=== PATIENT | female | born 1930 | race African-American/Black ===

== ENCOUNTER 2016-10-13 16:21 | Inpatient (IN) | payer OTHER ==
[~2016-10-13] VITALS: Ht 160 cm; Wt 86.4 kg
[~2016-10-13 16:21] MED LIST: ALPR0.5T6 PO; AMLO10TA2 PO; AMLO5TAB2 PO; ASPI81TA9 PO; ATOR20TA PO; BREO ELLIPTA 11 EACH INH; BUDE10.22 IH; BUME1TAB PO; CLOP75TA PO; EZET10TA3 PO; FURO-69 PO; LOSA50TA2 PO; LOSA50TA6 PO; METO25TA4 PO; METO50TA2 PO; METO5TAB4 PO; NITR0.4T6 SL; POTA10CA PO; POTA10TA12 PO; POTA20TA4 PO; PROAIR HFA8.5 GM INH; SIMV20TA3 PO; TICA90TA PO; TIOT18CA IH
[2016-10-13] MEDS ORDERED: IV NORMAL SALINE 1000ML BAG 1,000 ML IV SCH (18:12)
[2016-10-13] MEDS ORDERED: ONDANSETRON PF 4 MG/2 ML VIAL. IV ONE (18:15)
[2016-10-13] MEDS ORDERED: FAMOTIDINE 20 MG/2 ML VIAL IVP ONE (18:15)
--- NOTE | 2016-10-13 18:17 | PHYS DOC ---
Past Medical History Past Medical History: CHF, Diverticulitis, Hypertension, RI Past Surgical History: Cholecystectomy, Coronary Bypass Surgery, Hysterectomy, Other Additional Past Surgical Histo: Hiatal Hernia repair, cardiac cath, STENT PLACEMENT, PARTIAL COLECTOMY Alcohol Use: None Drug Use: None Adult General Chief Complaint Chief Complaint: NAUSEA/VOMITING/DIARRHA HPI HPI Patient is a 86 year old female who presents with worsening weakness and shortness of breath over the past 2 weeks. Patient states her symptoms got significantly worse over the past 2 days. The patient has history of CHF, hypertension, and myocardial infarction. Patient denies any fevers or chest pain. Patient states that she has had intermittent abdominal pain towards the upper portion of her belly, however she is not experiencing pain currently. Patient denies any increase in urinary frequency or dysuria. Patient has had significant increase in dyspnea with exertion. Patient states that she is short of breath currently while at rest. Patient also admits to worsening edema in her lower extremities. Review of Systems Review of Systems Constitutional: Generalized weakness, Denies fever or chills [] Eyes: Denies change in visual acuity, redness, or eye pain [] HENT: Denies nasal congestion or sore throat [] Respiratory: Shortness of breath, denies cough [] Cardiovascular: Lower extremity edema, denies chest pain [] GI: Denies abdominal pain, nausea, vomiting, bloody stools or diarrhea [] : Denies dysuria or hematuria [] Musculoskeletal: Denies back pain or joint pain [] Integument: Denies rash or skin lesions [] Neurologic: Denies headache, focal weakness or sensory changes [] Current Medications Current Medications Current Medications Medications (Trade) Dose Ordered Sig/Chacho Start Time Stop Time Status Last Admin Dose Admin Famotidine (Pepcid) 20 mg 1X ONCE 10/13/16 18:15 10/13/16 18:16 DC 10/13/16 19:51 20 MG Ondansetron HCl (Zofran) 4 mg 1X ONCE 10/13/16 18:15 10/13/16 18:16 DC 10/13/16 19:51 4 MG Sodium Chloride (Iv Sodium Chloride 0.9% 1000ml Bag) 1,000 ml @ 100 mls/hr Q10H 10/13/16 18:12 10/14/16 04:11 10/13/16 19:51 100 MLS/HR Allergies Allergies Allergies Coded Allergies Type Severity Reaction Last Updated Verified No Known Drug Allergies 03/08/14 No Physical Exam Physical Exam Constitutional: Alert, afebrile, appears in mild to moderate discomfort. [] HENT: Normocephalic, atraumatic, bilateral external ears normal, oropharynx moist, no oral exudates, nose normal. [] Eyes: PERRLA, EOMI, conjunctiva normal, no discharge. [] Neck: Normal range of motion, no tenderness, supple, no stridor. [] Cardiovascular: Irregular rhythm, bradycardia, no murmur [] Lungs & Thorax: Mild to moderate shortness of air movement bilaterally, rales bilaterally, no wheezes [] Abdomen: Bowel sounds normal, soft, no tenderness, no masses, no pulsatile masses. [] Skin: Warm, dry, no erythema, no rash. [] Back: No tenderness, no CVA tenderness. [] Extremities: No tenderness, no cyanosis, no clubbing, ROM intact, 2+ pitting edema in the bilateral lower extremities. [] Neurologic: Alert and oriented X 3, normal motor function, normal sensory function, no focal deficits noted. [] Current Patient Data Vital Signs Vital Signs Date Time Temp Pulse Resp B/P Pulse Ox O2 Delivery O2 Flow Rate FiO2 10/13/16 17:55 97.8 72 22 108/59 93 Nasal Cannula 4 97.8 Lab Values Laboratory Tests Test 10/13/16 19:40 White Blood Count 7.1x10^3/uL (4.0-11.0) Red Blood Count 4.32x10^6/uL (3.50-5.40) Hemoglobin 13.3g/dL (12.0-15.5) Hematocrit 40.7% (36.0-47.0) Mean Corpuscular Volume 94fL (79-100) Mean Corpuscular Hemoglobin 31pg (25-35) Mean Corpuscular Hemoglobin Concent 33g/dL (31-37) Red Cell Distribution Width 17.8% (11.5-14.5) H Platelet Count 222x10^3/uL (140-400) Neutrophils (%) (Auto) 67% (31-73) Lymphocytes (%) (Auto) 18% (24-48) L Monocytes (%) (Auto) 13% (0-9) H Eosinophils (%) (Auto) 1% (0-3) Basophils (%) (Auto) 1% (0-3) Neutrophils # (Auto) 4.8x10^3uL (1.8-7.7) Lymphocytes # (Auto) 1.3x10^3/uL (1.0-4.8) Monocytes # (Auto) 0.9x10^3/uL (0.0-1.1) Eosinophils # (Auto) 0.0x10^3/uL (0.0-0.7) Basophils # (Auto) 0.1x10^3/uL (0.0-0.2) Sodium Level 147mmol/L (136-145) H Potassium Level 3.4mmol/L (3.5-5.1) L Chloride Level 106mmol/L (98-107) Carbon Dioxide Level 29mmol/L (21-32) Anion Gap 12 (6-14) Blood Urea Nitrogen 26mg/dL (7-20) H Creatinine 2.0mg/dL (0.6-1.0) H Estimated GFR (Cockcroft-Gault) 28.7 BUN/Creatinine Ratio 13 (6-20) Glucose Level 89mg/dL (70-99) Calcium Level 9.1mg/dL (8.5-10.1) Total Bilirubin 1.6mg/dL (0.2-1.0) H Aspartate Amino Transferase (AST) 31U/L (15-37) Alanine Aminotransferase (ALT) 11U/L (14-59) L Alkaline Phosphatase 161U/L (46-116) H Creatine Kinase 345U/L (26-192) H Creatine Kinase MB (Mass) 2.0ng/mL (0.0-3.6) Creatine Kinase MB Relative Index 0.6% (0-4) Troponin I Quantitative 0.104ng/mL (0.000-0.055) YC-Gsz-G-Type Natriuretic Peptide 2782pg/mL (0-449) H Total Protein 7.1g/dL (6.4-8.2) Albumin 2.8g/dL (3.4-5.0) L Albumin/Globulin Ratio 0.7 (1.0-1.7) L Lipase 52U/L (73-393) L Laboratory Tests 10/13/16 19:40 Laboratory Tests 10/13/16 19:40 EKG EKG Interpreted by me: Heart rate 79, trigeminy, normal axis, no acute ST/T-wave abnormalities present [] Radiology/Procedures Radiology/Procedures 3 view acute abdominal series interpreted by me: Hilar pulmonary vascular congestion, trace pleural effusions bilaterally, cardiomegaly present, nonobstructive bowel gas pattern, no free air under the diaphragm [] Course & Med Decision Making Course & Med Decision Making Pertinent Labs and Imaging studies reviewed. (See chart for details) Patient receiving supplemental oxygen which is holding her oxygen saturation above 92% at this time. The patient display signs of acute on chronic congestive heart failure. The patient will need admission to the hospital for further treatment. Patient started on 60 mg of IV Lasix in the emergency department. Patient will also require gentle IV hydration as patient appears somewhat dehydrated on exam as well. Patient was admitted to Dr. Naqvi. A consult was placed to Dr. Vogt to follow patient in hospital. Dragon Disclaimer Dragon Disclaimer This electronic medical record was generated, in whole or in part, using a voice recognition dictation system. Departure Departure Impression: Primary Impression: Acute on chronic congestive heart failure Additional Impressions: Elevated troponin Chronic renal failure, stage 4 (severe) Severe protein-calorie malnutrition Disposition: ADMITTED INPATIENT Admitting Physician: Ger Naqvi Condition: GUARDED Referrals: CARTER BRAR (PCP) Problem Qualifiers Primary Impression: Acute on chronic congestive heart failure Congestive heart failure type: unspecified congestive heart failure type Qualified Code: I50.9 - Heart failure, unspecified MIAH OWENS MD Oct 13, 2016 18:17
[2016-10-13 19:59] LABS: BASO # 0.1 x10^3/uL (0.0-0.2); BASO % 1 % (0-3); EOS % 1 % (0-3); HEMATOCRIT 40.7 % (36.0-47.0); HEMOGLOBIN 13.3 g/dL (12.0-15.5); LYMPH # 1.3 x10^3/uL (1.0-4.8); LYMPH % 18 % (24-48); MEAN CORPUSCULAR HEMOGLOBIN 31 pg (25-35); MEAN CORPUSCULAR HGB CONC 33 g/dL (31-37); MEAN CORPUSCULAR VOLUME 94 fL (79-100); MONO % 13 % (0-9); NEUT % 67 % (31-73); PLATELET COUNT 222 x10^3/uL (140-400); RED BLOOD COUNT 4.32 x10^6/uL (3.50-5.40); RED CELL DISTRIBUTION WIDTH 17.8 % (11.5-14.5); WHITE BLOOD COUNT 7.1 x10^3/uL (4.0-11.0)
[2016-10-13 20:12] LABS: CALCIUM 9.1 mg/dL (8.5-10.1); GFR 28.7; POTASSIUM 3.4 mmol/L (3.5-5.1)
[2016-10-13 20:18] LABS: ALBUMIN 2.8 g/dL (3.4-5.0); ALBUMIN/GLOBULIN RATIO 0.7 (1.0-1.7); TOTAL BILIRUBIN 1.6 mg/dL (0.2-1.0); TOTAL PROTEIN 7.1 g/dL (6.4-8.2)
[2016-10-13 20:25] LABS: CKMB INDEX 0.6 % (0-4)
--- NOTE | 2016-10-13 21:47 | ACF ---
Admission Forms Criteria HEART FAILURE: COMMON COMPLICATIONS Clinical Indications for Inpatient Care (Place 'X' for any and all applicable criteria): Ongoing inpatient care may be indicated for heart failure with ANY ONE of the following (1)(2)(3)(4)(5): [ ]I. Ongoing need for care for primary condition requiring frequent therapy adjustments because of changes in cardiac function (eg, drug dosage changes for drugs that are renally metabolized) [ ]II. New-onset heart failure [ ]III. Heart failure with decreased urine output not responsive to attempts to optimize volume status [ ]IV. Acute cardiac ischemia causing or associated with failure [X]V. Complications of heart failure, including ANY ONE of the following: [ ]a) Pericardial effusion [ ]b) Symptomatic pleural effusion [ ]c) O2 saturation <90% or PO2 < 60 mm Hg (8.0 kPa) on room air or require baseline supplemental O2 [ ]d) Tachypnea [X]e) Dyspnea [ ]f) Syncope [ ]g) Change in mental status [ ]h) Acute renal insufficiency that is severe (reduction of more than 50% in estimated glomerular filtration rate from baseline) or progressive reduction of more than 25% in estimated glomerular filtration rate from baseline, with creatinine continuing to rise) [ ]i) Hemodynamic instability [ ]j) Anasarca [ ]k) Clinically significant metabolic abnormalities due to heart failure (eg, new-onset metabolic acidosis) Extended stay beyond goal length of stay for primary condition may be needed until ALL of the following are present(1)(3): [ ]a) Stable and effective diuretic regimen established (or patient on stable dialysis regimen if in chronic renal failure) [ ]b) Breathing comfortably at rest [ ]c) Saturation of arterial oxygen greater than 90% or at acceptable baseline [ ]d) Pulmonary edema absent or improved [ ]e) Hemodynamic stability [ ]f) Volume status acceptable on oral medication [ ]g) Peripheral or sacral edema absent or improved [ ]h) Renal function stable and manageable at a lower level of care [ ]i) Complications (eg, pleural effusion) resolved or manageable at a lower level of care [ ]j) Patient or caregiver has received written discharge instructions or educational material addressing activity level, diet, discharge medications, follow-up appointment, weight monitoring, and what to do if symptoms worsen The original [employer] content created by [employer] has been revised. The portions of the content which have been revised are identified through the use of italic text or in bold, and [facility] has neither reviewed nor approved the modified material.All other unmodified content is copyright [facility]. Please see references footnoted in the original [facility] edition 2016 Admission Criteria Met?: Yes JAYME HOLLAND Oct 13, 2016 21:46
[2016-10-13 23:40] VITALS: BP 105/84
[2016-10-14] VITALS (7 sets, daily range): BP systolic 78–133; BP diastolic 51–72
[2016-10-14] MEDS ORDERED: METO25TA4 PO (00:39)
[2016-10-14] MEDS ORDERED: ACET500T68 PO (00:41)
[2016-10-14] MEDS ORDERED: FURO40TA4 PO (00:42)
--- NOTE | 2016-10-14 06:11 | EKG ---
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
--- NOTE | 2016-10-14 08:14 | RAD ---
Abdomen series with chest, 3 views, 10/13/2016: History: Epigastric pain, shortness of breath There is a small amount of gas in the GI tract in a nonspecific pattern. No free air seen in the abdomen. There is no evidence of organomegaly. Scattered vascular calcifications are present. Degenerative changes are evident in the spine. The heart is enlarged. There is calcific plaquing of the aorta. There is mild unchanged elevation of the left hemidiaphragm. The pulmonary vascularity is within normal limits. There is known fibrocalcific pleural/parenchymal scarring in the left base. There is probably mild superimposed bibasilar atelectasis. The upper lung hernandez are clear. IMPRESSION: 1. No acute abdominal abnormality is detected. 2. Cardiomegaly and aortic atherosclerosis. 3. Mild bibasilar atelectasis superimposed upon scarring.
--- NOTE | 2016-10-14 10:35 | PDOC1 ---
History and Physical Past Medical History Cardiovascular: CAD, CHF, HTN, Hyperlipidemia, Other Pulmonary: Other CENTRAL NERVOUS SYSTEM: Other GI: GERD, Peptic Ulcer disease, Other Heme/Onc: No pertinent hx Hepatobiliary: No pertinent hx Psych: No pertinent hx Rheumatologic: No pertinent hx Infectious disease: No pertinent hx Renal/: No pertinent hx Endocrine: No pertinent hx Past Surgical History Past Surgical History: Cholecystectomy, Other Family History Family History: Coronary Artery Disease, Hypertension Social History ALCOHOL: none Drugs: None Current Problem List Problem List Problems Medical Problems: (1) Acute on chronic congestive heart failure Status: Acute (2) Acute on chronic diastolic CHF (congestive heart failure) Status: Acute (3) Chronic renal failure, stage 4 (severe) Status: Acute (4) Elevated troponin Status: Acute (5) Severe protein-calorie malnutrition Status: Acute Current Medications Current Medications Current Medications Medications (Trade) Dose Ordered Sig/Chacho Start Time Stop Time Status Last Admin Dose Admin Famotidine (Pepcid) 20 mg 1X ONCE 10/13/16 18:15 10/13/16 18:16 DC 10/13/16 19:51 20 MG Furosemide (Lasix) 40 mg 1X ONCE 10/14/16 10:45 10/14/16 10:46 UNV Ondansetron HCl (Zofran) 4 mg 1X ONCE 10/13/16 18:15 10/13/16 18:16 DC 10/13/16 19:51 4 MG Sodium Chloride (Iv Sodium Chloride 0.9% 1000ml Bag) 1,000 ml @ 100 mls/hr Q10H 10/13/16 18:12 10/14/16 04:11 DC 10/13/16 19:51 100 MLS/HR Allergies Allergies Allergies Coded Allergies Type Severity Reaction Last Updated Verified No Known Drug Allergies 03/08/14 No ROS Review of System CONSTITUTIONAL: No fever or chills EYES: No recent changes SKIN: No rash or itching CARDIOVASCULAR: No chest pain, syncope but sob and edema RESPIRATORY: SOB GASTROINTESTINAL: No nausea, vomiting or abdominal pain NEUROLOGICAL: No headaches or weakness ENDOCRINE: No cold or heat intolerance GENITOURINARY: No urgency or frequency of urination MUSCULOSKELETAL: No back pain or joint pain LYMPHATICS: No enlarged lymph nodes PSYCHIATRIC: No anxiety or depression Physical Exam Physical Exam GEN.: apparent distress. Alert and oriented. HEENT: Head is normocephalic, atraumatic NECK: Supple. no jvd LUNGS: b/l rales mild distress HEART: RRR, S1, S2 present. Peripheral pulses intact ABDOMEN: Soft, nontender. Positive bowel sounds. EXTREMITIES: Without any cyanosis. edema +2 NEUROLOGIC: Normal speech, normal tone PSYCHIATRIC: Normal affect, normal mood. SKIN: No visible skin changes Vitals Vitals Vital Signs Date Time Temp Pulse Resp B/P Pulse Ox O2 Delivery O2 Flow Rate FiO2 10/14/16 07:00 98.4 74 17 109/71 93 Nasal Cannula 3.5 98.4 Labs Labs Laboratory Tests Test 10/13/16 19:40 White Blood Count 7.1x10^3/uL (4.0-11.0) Red Blood Count 4.32x10^6/uL (3.50-5.40) Hemoglobin 13.3g/dL (12.0-15.5) Hematocrit 40.7% (36.0-47.0) Mean Corpuscular Volume 94fL (79-100) Mean Corpuscular Hemoglobin 31pg (25-35) Mean Corpuscular Hemoglobin Concent 33g/dL (31-37) Red Cell Distribution Width 17.8% (11.5-14.5) Platelet Count 222x10^3/uL (140-400) Neutrophils (%) (Auto) 67% (31-73) Lymphocytes (%) (Auto) 18% (24-48) Monocytes (%) (Auto) 13% (0-9) Eosinophils (%) (Auto) 1% (0-3) Basophils (%) (Auto) 1% (0-3) Neutrophils # (Auto) 4.8x10^3uL (1.8-7.7) Lymphocytes # (Auto) 1.3x10^3/uL (1.0-4.8) Monocytes # (Auto) 0.9x10^3/uL (0.0-1.1) Eosinophils # (Auto) 0.0x10^3/uL (0.0-0.7) Basophils # (Auto) 0.1x10^3/uL (0.0-0.2) Sodium Level 147mmol/L (136-145) Potassium Level 3.4mmol/L (3.5-5.1) Chloride Level 106mmol/L (98-107) Carbon Dioxide Level 29mmol/L (21-32) Anion Gap 12 (6-14) Blood Urea Nitrogen 26mg/dL (7-20) Creatinine 2.0mg/dL (0.6-1.0) Estimated GFR (Cockcroft-Gault) 28.7 BUN/Creatinine Ratio 13 (6-20) Glucose Level 89mg/dL (70-99) Calcium Level 9.1mg/dL (8.5-10.1) Total Bilirubin 1.6mg/dL (0.2-1.0) Aspartate Amino Transf (AST/SGOT) 31U/L (15-37) Alanine Aminotransferase (ALT/SGPT) 11U/L (14-59) Alkaline Phosphatase 161U/L (46-116) Creatine Kinase 345U/L (26-192) Creatine Kinase MB (Mass) 2.0ng/mL (0.0-3.6) Creatine Kinase MB Relative Index 0.6% (0-4) Troponin I Quantitative 0.104ng/mL (0.000-0.055) KR-Nxz-I-Type Natriuretic Peptide 2782pg/mL (0-449) Total Protein 7.1g/dL (6.4-8.2) Albumin 2.8g/dL (3.4-5.0) Albumin/Globulin Ratio 0.7 (1.0-1.7) Lipase 52U/L (73-393) Laboratory Tests Test 10/13/16 19:40 White Blood Count 7.1x10^3/uL (4.0-11.0) Red Blood Count 4.32x10^6/uL (3.50-5.40) Hemoglobin 13.3g/dL (12.0-15.5) Hematocrit 40.7% (36.0-47.0) Mean Corpuscular Volume 94fL (79-100) Mean Corpuscular Hemoglobin 31pg (25-35) Mean Corpuscular Hemoglobin Concent 33g/dL (31-37) Red Cell Distribution Width 17.8% (11.5-14.5) Platelet Count 222x10^3/uL (140-400) Neutrophils (%) (Auto) 67% (31-73) Lymphocytes (%) (Auto) 18% (24-48) Monocytes (%) (Auto) 13% (0-9) Eosinophils (%) (Auto) 1% (0-3) Basophils (%) (Auto) 1% (0-3) Neutrophils # (Auto) 4.8x10^3uL (1.8-7.7) Lymphocytes # (Auto) 1.3x10^3/uL (1.0-4.8) Monocytes # (Auto) 0.9x10^3/uL (0.0-1.1) Eosinophils # (Auto) 0.0x10^3/uL (0.0-0.7) Basophils # (Auto) 0.1x10^3/uL (0.0-0.2) Sodium Level 147mmol/L (136-145) Potassium Level 3.4mmol/L (3.5-5.1) Chloride Level 106mmol/L (98-107) Carbon Dioxide Level 29mmol/L (21-32) Anion Gap 12 (6-14) Blood Urea Nitrogen 26mg/dL (7-20) Creatinine 2.0mg/dL (0.6-1.0) Estimated GFR (Cockcroft-Gault) 28.7 BUN/Creatinine Ratio 13 (6-20) Glucose Level 89mg/dL (70-99) Calcium Level 9.1mg/dL (8.5-10.1) Total Bilirubin 1.6mg/dL (0.2-1.0) Aspartate Amino Transf (AST/SGOT) 31U/L (15-37) Alanine Aminotransferase (ALT/SGPT) 11U/L (14-59) Alkaline Phosphatase 161U/L (46-116) Creatine Kinase 345U/L (26-192) Creatine Kinase MB (Mass) 2.0ng/mL (0.0-3.6) Creatine Kinase MB Relative Index 0.6% (0-4) Troponin I Quantitative 0.104ng/mL (0.000-0.055) QN-Exa-T-Type Natriuretic Peptide 2782pg/mL (0-449) Total Protein 7.1g/dL (6.4-8.2) Albumin 2.8g/dL (3.4-5.0) Albumin/Globulin Ratio 0.7 (1.0-1.7) Lipase 52U/L (73-393) VTE Prophylaxis Ordered VTE Prophylaxis Devices: Yes VTE Pharmacological Prophylaxi: Yes KE SHAW MD Oct 14, 2016 10:35
[2016-10-14] MEDS ORDERED: NON FORMULARY ITEM (Albuterol Sulfate (Proair Hfa Inhaler) 1 PUFF) INH PRN (10:45)
[2016-10-14] MEDS ORDERED: FUROSEMIDE 20 MG/2 ML VIAL IVP ONE (11:00)
[2016-10-14] MEDS ORDERED: ALBUTEROL SULFATE 2.5 MG/3 ML NEBU. NEB PRN (11:00)
[2016-10-14] MEDS: BUDESONIDE 0.5 MG/2 ML NEBU NEB SCH ×2 (11:00→19:01)
--- NOTE | 2016-10-14 11:12 | PDOC2 ---
CARDIAC CONSULT DATE OF CONSULT Date of Consult DATE: 10/14/16 TIME: 10:52 REASON FOR CONSULT Reason for Consult: Chest pain REFERRING PHYSICIAN Referring Physician: Driss SOURCE Source: Chart review, Patient HISTORY OF PRESENT ILLNESS HISTORY OF PRESENT ILLNESS This is a pleasant 86 yo female admitted for complains of SOA. Reports that in the last 2 weeks he has been steadily having increased SOA and worse in the last few days. Positive for nonproductive cough, weight gain of 9 lbs in the last 2 weeks, symptoms of polydipsia, increased leg swelling, abdominal pain, diarrhea, nausea and some vomiting. Her last GI symptoms was yesterday. Feels decreased appetite and bloating. She has diffuse abdominal achy, not quite chest pain and more on abdominal region. Denies any palpitations. Verbalized compliance with her medications. Denies receiving home health. She is significant for CAD, primary pulmonary HTN. 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) Pulmonary: COPD, CESAR with CPAP, pulmonary HTN CENTRAL NERVOUS SYSTEM: Other (no pertinent hx) GI: GERD, Peptic Ulcer disease, Other (diverticulitis) Heme/Onc: No pertinent hx Hepatobiliary: No pertinent hx Psych: No pertinent hx Musculoskeletal: Other (left shoulder arthritis ) Rheumatologic: No pertinent hx Infectious disease: No pertinent hx ENT: No pertinent hx Renal/: CKD3, hypokalemia Endocrine: No pertinent hx Dermatology: No pertinent hx PAST SURGICAL HISTORY Past Surgical History Cholecystectomy, Other (RCA stent, 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, LLE arterial bypass) FAMILY HISTORY Family History Coronary Artery Disease, Hypertension SOCIAL HISTORY Smoke: No ALCOHOL: none Drugs: None Lives: with Family CURRENT MEDICATIONS CURRENT MEDICATIONS Current Medications Medications (Trade) Dose Ordered Sig/Chacho Route PRN Reason Start Time Stop Time Status Last Admin Dose Admin Sodium Chloride (Iv Sodium Chloride 0.9% 1000ml Bag) 1,000 ml @ 100 mls/hr Q10H IV 10/13/16 18:12 10/14/16 04:11 DC 10/13/16 19:51 Ondansetron HCl (Zofran) 4 mg 1X ONCE IV 10/13/16 18:15 10/13/16 18:16 DC 10/13/16 19:51 Famotidine (Pepcid) 20 mg 1X ONCE IVP 10/13/16 18:15 10/13/16 18:16 DC 10/13/16 19:51 ALLERGIES ALLERGIES: Coded Allergies: No Known Drug Allergies (Unverified , 03/08/14) ROS Review of System 14 point ROS evaluated with pertinent positives noted per HPI PHYSICAL EXAM General: Alert, Oriented X3, Cooperative, mild distress, Other (appears tired) HEENT: Atraumatic, Mucous membr. moist/pink Lungs: Clear to auscultation, Other (tachypneic) Heart: Regular rate, Normal S1, Normal S2, Other (s4; 4/6 systolic murmur to LLS border) Extremities: No cyanosis, Other (3-4+ bilateral LE pitting edema with weeping) Skin: No breakdown, No significant lesion Neuro: Normal speech, Sensation intact Psych/Mental Status: Mental status NL, Mood NL MUSCULOSKELETAL: Osteoarthritic changes both hands VITALS VITALS Vital Signs Date Time Temp Pulse Resp B/P Pulse Ox O2 Delivery O2 Flow Rate FiO2 10/14/16 07:00 98.4 74 17 109/71 93 Nasal Cannula 3.5 98.4 LABS Lab: Laboratory Tests Test 10/13/16 19:40 White Blood Count 7.1x10^3/uL (4.0-11.0) Red Blood Count 4.32x10^6/uL (3.50-5.40) Hemoglobin 13.3g/dL (12.0-15.5) Hematocrit 40.7% (36.0-47.0) Mean Corpuscular Volume 94fL (79-100) Mean Corpuscular Hemoglobin 31pg (25-35) Mean Corpuscular Hemoglobin Concent 33g/dL (31-37) Red Cell Distribution Width 17.8% (11.5-14.5) Platelet Count 222x10^3/uL (140-400) Neutrophils (%) (Auto) 67% (31-73) Lymphocytes (%) (Auto) 18% (24-48) Monocytes (%) (Auto) 13% (0-9) Eosinophils (%) (Auto) 1% (0-3) Basophils (%) (Auto) 1% (0-3) Neutrophils # (Auto) 4.8x10^3uL (1.8-7.7) Lymphocytes # (Auto) 1.3x10^3/uL (1.0-4.8) Monocytes # (Auto) 0.9x10^3/uL (0.0-1.1) Eosinophils # (Auto) 0.0x10^3/uL (0.0-0.7) Basophils # (Auto) 0.1x10^3/uL (0.0-0.2) Sodium Level 147mmol/L (136-145) Potassium Level 3.4mmol/L (3.5-5.1) Chloride Level 106mmol/L (98-107) Carbon Dioxide Level 29mmol/L (21-32) Anion Gap 12 (6-14) Blood Urea Nitrogen 26mg/dL (7-20) Creatinine 2.0mg/dL (0.6-1.0) Estimated GFR (Cockcroft-Gault) 28.7 BUN/Creatinine Ratio 13 (6-20) Glucose Level 89mg/dL (70-99) Calcium Level 9.1mg/dL (8.5-10.1) Total Bilirubin 1.6mg/dL (0.2-1.0) Aspartate Amino Transf (AST/SGOT) 31U/L (15-37) Alanine Aminotransferase (ALT/SGPT) 11U/L (14-59) Alkaline Phosphatase 161U/L (46-116) Creatine Kinase 345U/L (26-192) Creatine Kinase MB (Mass) 2.0ng/mL (0.0-3.6) Creatine Kinase MB Relative Index 0.6% (0-4) Troponin I Quantitative 0.104ng/mL (0.000-0.055) AL-Umd-T-Type Natriuretic Peptide 2782pg/mL (0-449) Total Protein 7.1g/dL (6.4-8.2) Albumin 2.8g/dL (3.4-5.0) Albumin/Globulin Ratio 0.7 (1.0-1.7) Lipase 52U/L (73-393) ECHOCARDIOGRAM ECHOCARDIOGRAM <Conclusion> The left ventricle is normal size. The left ventricular systolic function is normal and the ejection fraction is within normal range. The Ejection Fraction is 55-60%. There is a flattened septum consistent with right ventricle pressure overload. The right ventricle is moderate to severely dilated. The right atrium is moderate to severely dilated dilated. There is minimal valvular aortic stenosis. Calculated aortic valve maximum pressure gradient of 15mmHg and mean pressure gradient of 7mmHg. Doppler and Color Flow revealed no significant aortic regurgitation. Doppler and Color Flow revealed trace to mild mitral regurgitation. Doppler and Color Flow revealed severe tricuspid regurgitation. There is severe pulmonary hypertension. The PA pressure was estimated at 80 mmHg. DATE: 11/04/151807 HEART CATH HEART CATH CORONARY ANGIOGRAPHY: LM is a short large caliber vessel with normal angiographic appearance. LAD is a moderate to large caliber vessel with proximal calcification but otherwise normal angiographic appearance. LCx is a moderate caliber nondominant vessel with proximal calcification but otherwise normal angiographic appearance. RCA is a moderate to large caliber vessel with a proximal 40% stenosis, a patent mid stent with 20% ISR, and mild diffuse irregularities distally of less than 20%. Conclusion 1. Elevated biventricular filling pressures. 2. Severe pulmonary hypertension. (No response to vasodilator trial) 3. Severe RV systolic dysfunction with right sided pulsus alternans. 4. One vessel coronary artery disease with patent RCA stent. Recommendations Aggressive Medical Therapy DATE: 11/05/152115 ASSESSMENT/PLAN ASSESSMENT/PLAN 1. Atypical Chest pain: noncardiac. more to abdominal pain 2. Abdominal pain/nausea/diarrhea: likely from hepatic/GI congestion 3. Acute on chronic diastolic right sided CHF: NYHA 2-3 4. Severe pulmonary HTN/cor pulmonale/COPD: Has not used CPAP for a long time. 5. CAD: recent LHC with patent RCA stent. EKG SR/PAC no acute changes. Troponin 0.1, demand mediated 6. HTN: controlled 7. HLP 8. CHIQUI on CKD3 with hypokalemia 9. Hx of PUD Recommendations 1. TTE today 2. Replace K 3. No ischemic workup warranted 4. Continue with secondary prevention 5. Bumex/zaroxylyn, agree with extra dose of lasix. 6. Recommend pulmonary consult. ABGs. 7. TSH, lipid panel, Mg 8. Pt is a DNR/DNI per past records, considered for hospice but was not ready noted on 05/2016 9. Start GI prophylaxis. Problems: CONSUELO CALDERON APRN Oct 14, 2016 11:12
[2016-10-14] MEDS: BUMETANIDE 1 MG TABLET PO SCH ×2 (11:25→21:08)
[2016-10-14] MEDS: METOLAZONE 2.5 MG TABLET PO SCH (11:25)
[2016-10-14] MEDS: ASPIRIN ENTERIC COATED 81 MG TABLET.DR. PO SCH (11:25)
[2016-10-14] MEDS: AMLODIPINE BESYLATE 5 MG TABLET PO SCH (11:42)
[2016-10-14] MEDS: POTASSIUM CHLORIDE 20 MEQ TABLET.ER. PO SCH (11:42)
[2016-10-14] MEDS: METOPROLOL TART IMMED RELEASE 25 MG TABLET PO SCH ×2 (11:46→21:00)
[2016-10-14] MEDS: IPRATRPIUM/ALBUTEROL 0.5/2.5MG 3 ML NEBU. NEB SCH ×3 (12:00→19:01)
[2016-10-14 12:39] LABS: HCO3 ABG 22 mmol/L (21-28); PCO2 ABG 38 mmHg (35-46); PH ABG 7.37 (7.35-7.45); PO2 ABG 63 mmHg (65-108); SAT O2 ABG 89 % (92-99)
[2016-10-14 12:46] LABS: FIO2 ABG 36
[2016-10-14] MEDS: PANTOPRAZOLE 40 MG TABLET. PO SCH (13:00)
[2016-10-14 15:10] LABS: CREATININE 2.4 mg/dL (0.6-1.0); GFR 23.3; POTASSIUM 3.6 mmol/L (3.5-5.1)
--- NOTE | 2016-10-14 16:54 | CARD ---
APPROVED REPORT EXAM: Two-dimensional and M-mode echocardiogram with Doppler and color Doppler. Other Information Quality : GoodHR: 76bpm Rhythm : APC's INDICATION Congestive Heart Failure 2D DIMENSIONS RVDd4.2 (2.9-3.5cm)Left Atrium(2D)3.2 (1.6-4.0cm) IVSd1.1 (0.7-1.1cm)Aortic Root(2D)2.9 (2.0-3.7cm) LVDd3.3 (3.9-5.9cm)LVOT Diameter2.0 (1.8-2.4cm) PWd1.1 (0.7-1.1cm)LVDs1.7 (2.5-4.0cm) FS (%) 47.1 %SV33.9 ml Aortic Valve AoV Peak Casa.154.8cm/sAoV VTI22.9cm AO Peak GR.9.6mmHgLVOT Peak Casa.99.7cm/s LVOT VTI 16.83cmAO Mean GR.5mmHg KEYSHAWN (VMAX)2.53jg0OZT (VTI)2.28cm2 Mitral Valve MV E Mrvtsscj36.1cm/sMV DECEL NZII699xf MV A Ovmrjstc59.5cm/sMV E Mean Gr.2mmHg MV YNG60scT/A Ratio0.8 MV A Snwsocvl52ynXOJ (PHT)2.65cm2 TDI E/Lateral E'9.2E/Medial E'9.9 Pulmonary Valve PV Peak Gltsrcqn18.6cm/sPV Peak Grad.2mmHg RVOT VTI9.3cm Tricuspid Valve TR P. Oobhnfjt559ic/sRAP TQWRVJMN58ifDg TR Peak Gr.15foFpPSUT81otVs LEFT VENTRICLE The left ventricle is normal size. There is mild to moderate concentric left ventricular hypertrophy. The left ventricle is hyperdynamic. The Ejection Fraction is 65-70%. Paradoxic septum consistent rig ht ventricle volume overload. Transmitral Doppler flow pattern is Grade I-abnormal relaxation pattern . RIGHT VENTRICLE The right ventricle is moderately dilated. There is normal right ventricular wall thickness. Systolic function is moderately reduced. ATRIA The left atrium size is normal. The right atrium is severely dilated. The interatrial septum is intac t with no evidence for an atrial septal defect or patent foramen ovale as noted on 2-D or Doppler angel ging. AORTIC VALVE The aortic valve is mildly to moderately sclerotic. The aortic valve is trileaflet. Doppler and Color Flow revealed trace aortic regurgitation. There is no significant aortic valvular stenosis. MITRAL VALVE Mitral annular calcification is mild. The mitral valve leaflets are thickened. There is no evidence o f mitral valve prolapse. There is no mitral valve stenosis. Doppler and Color Flow revealed mild mitr al regurgitation. TRICUSPID VALVE Tricuspid leaflets do not appear to coapt. Doppler and Color Flow revealed moderate to severe tricusp id regurgitation. There is moderate to severe pulmonary hypertension. The PA pressure was estimated a t 60 mmHg. There is no tricuspid valve stenosis. PULMONIC VALVE The pulmonary valve is normal in structure. Doppler and Color Flow revealed mild pulmonic valvular re gurgitation. There is no pulmonic valvular stenosis. GREAT VESSELS The aortic root is normal in size. The IVC is dilated and collapses <50% with inspiration. PERICARDIAL EFFUSION There is no evidence of significant pericardial effusion. Critical Notification Critical Value: No <Conclusion> The left ventricle is normal size. The left ventricle is hyperdynamic. The Ejection Fraction is 65-70%. There is mild to moderate concentric left ventricular hypertrophy. The right ventricle is moderately dilated. Systolic function is moderately reduced. The right atrium is severely dilated. There is no significant aortic valvular stenosis. Doppler and Color Flow revealed trace aortic regurgitation. Doppler and Color Flow revealed mild mitral regurgitation. Doppler and Color Flow revealed moderate to severe tricuspid regurgitation. There is moderate to severe pulmonary hypertension. The PA pressure was estimated at 60 mmHg.
--- NOTE | 2016-10-14 18:38 | EKG ---
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
[2016-10-14] MEDS: ATORVASTATIN CALCIUM 20 MG TABLET PO SCH (21:08)
[2016-10-15 03:26] VITALS: BP 106/63
--- NOTE | 2016-10-15 07:26 | PDOC2 ---
CONSULT Date of Consult Date of Consult DATE: 10/15/16 TIME: 07:25 Reason for Consult Reason for Consult: CHIQUI/ CKD III Referring Physician Referring Physician: Dr Naqvi Identification/Chief Complaint Chief Complaint SOB Problems: Source Source: Chart review, Patient History of Present Illness Reason for Visit: as dictated Past Medical History Cardiovascular: CAD, CHF, HTN, Hyperlipidemia, Other Pulmonary: Other CENTRAL NERVOUS SYSTEM: Other GI: GERD, Peptic Ulcer disease, Other Heme/Onc: No pertinent hx Hepatobiliary: No pertinent hx Psych: No pertinent hx Musculoskeletal: Other Rheumatologic: No pertinent hx Infectious disease: No pertinent hx Renal/: No pertinent hx Endocrine: No pertinent hx Past Surgical History Past Surgical History: Cholecystectomy, Other Family History Family History: Coronary Artery Disease, Hypertension Social History No ALCOHOL: none Drugs: None Lives: with Family Domestic Violence: Neg Current Problem List Problem List Problems Medical Problems: (1) Acute on chronic congestive heart failure Status: Acute (2) Acute on chronic diastolic CHF (congestive heart failure) Status: Acute (3) Chronic renal failure, stage 4 (severe) Status: Acute (4) Elevated troponin Status: Acute (5) Severe protein-calorie malnutrition Status: Acute Current Medications Current Medications Current Medications Sodium Chloride (Iv Sodium Chloride 0.9% 1000ml Bag) 1,000 ml @ 100 mls/hr Q10H IV Last administered on 10/13/16 19:51; Start 10/13/16 at 18:12; Stop at 04:11; Status DC Ondansetron HCl (Zofran) 4 mg 1X ONCE IV Last administered on 10/13/16 19:51 ; Start 10/13/16 at 18:15; Stop 10/13/16 at 18:16; Status DC Famotidine (Pepcid) 20 mg 1X ONCE IVP Last administered on 10/13/16 19:51; Start 10/13/16 at 18:15; Stop 10/13/16 at 18:16; Status DC Furosemide (Lasix) 40 mg 1X ONCE IVP Last administered on 10/14/16 11:25; Start 10/14/16 at 11:00; Stop 10/14/16 at 11:01; Status DC Amlodipine Besylate (Norvasc) 5 mg DAILY PO Last administered on 10/14/16 11: 42; Start 10/14/16 at 11:00 Aspirin (Ecotrin) 81 mg DAILYWBKFT PO Last administered on 10/14/16 11:25; Start 10/14/16 at 11:00 Atorvastatin Calcium (Lipitor) 20 mg HS PO Last administered on 10/14/16 21:08 ; Start 10/14/16 at 21:00 Bumetanide (Bumex) 1 mg BID PO Last administered on 10/14/16 21:08; Start at 11:00 Metoprolol Tartrate (Lopressor) 12.5 mg BID PO Last administered on 10/14/16 11:46; Start 10/14/16 at 11:00 Metoprolol Tartrate (Lopressor) 25 mg DAILY PO ; Start 10/15/16 at 09:00; Stop 10/15/16 at 09:00; Status DC Potassium Chloride (Klor-Con) 20 meq DAILYWBKFT PO Last administered on 11:42; Start 10/14/16 at 11:00 Non-Formulary Medication 1 puff PRN Q6HRS PRN INH SHORTNESS OF BREATH; Start at 10:45; Stop 10/14/16 at 11:05; Status DC Non-Formulary Medication 1 puff DAILY INH ; Start 10/15/16 at 09:00; Stop at 09:00; Status DC Metolazone (Zaroxolyn) 5 mg DAILY PO Last administered on 10/14/16 11:25; Start 10/14/16 at 11:00 Non-Formulary Medication 2 inh DAILY IH ; Start 10/15/16 at 09:00; Stop at 09:00; Status DC Albuterol/ Ipratropium (Duoneb) 3 ml RTQID NEB Last administered on 10/14/16 19:01; Start 10/14/16 at 12:00 Budesonide (Pulmicort) 0.5 mg RTBID NEB Last administered on 10/14/16 19:01; Start 10/14/16 at 11:00 Albuterol Sulfate (Ventolin Neb Soln) 2.5 mg PRN Q6HRS PRN NEB SHORTNESS OF BREATH; Start 10/14/16 at 11:00 Pantoprazole Sodium (Protonix) 40 mg DAILYAC PO ; Start 10/14/16 at 13:00 Active Scripts Active Klor-Con M20 (Potassium Chloride) 20 Meq Tab.er.prt 20 Meq PO DAILYWBKFT Metoprolol Tartrate 25 Mg Tablet 12.5 Mg PO BID Metolazone 5 Mg Tablet 5 Mg PO DAILY Aspirin Ec (Aspirin) 81 Mg Tablet.dr 81 Mg PO DAILYWBKFT Breo Ellipta 100-25 Mcg Inh (Fluticasone/Vilanterol) 1 Each Aer.pow.ba 1 Puff INH DAILY Bumetanide 1 Mg Tablet 1 Mg PO BID Amlodipine Besylate 5 Mg Tablet 5 Mg PO DAILY Reported Furosemide 40 Mg Tablet 40 Mg PO [id number] Acetaminophen 500 Mg Tablet 500 Mg PO PRN Q6HRS PRN Metoprolol Tartrate 25 Mg Tablet 25 Mg PO DAILY Proair Hfa Inhaler (Albuterol Sulfate) 8.5 Gm Hfa.aer.ad 1 Puff INH PRN Q6HRS PRN Spiriva (Tiotropium [place]) 18 Mcg Cap.w.dev 2 Inh IH DAILY Lipitor (Atorvastatin Calcium) 20 Mg Tablet 20 Mg PO HS NITROGLYCERIN SubLingual (Nitroglycerin) 0.4 Mg Tab.subl 0.4 Mg SL PRN Allergies Allergies: Coded Allergies: No Known Drug Allergies (Unverified , 03/08/14) ROS Review of System GEN: no Fevers no Chills + gen. Weakness + Fatigue EYES: no new Visual Complaints ENT: no EN Drainage no Hearing deficiets CVS: no Orthopnea no CP + edema RESP: + SOB + LAIRD GI: n Nausea no Vomiting : no Dysuria no Urgency HEME: no easy bruising no Palp Ly Nodes NEURO no Focal Weakness no Sz PSYCH: no Suicidal Ideation min Depression SKIN: no Rashes ENDO: no Polyuria or Polydipsia no Hot/Cold Intolerance MU SK: occ Arthraigia no Myalgia Physical Exam Physical Exam General Appearance: Awake Alert Oriented x 3 In min resp Distress Eyes: VIsion Unchanged Conjunctiva Normal EN: No EN Drainage Mucous Memb. dryish Neck: ++ JVD ++ JVP Supple no palp Thyromegaly CVS: S1 S2 + Murmur No Gallop No Rub tr Edema Resp: rare bsasal Rales no Rhonchi no Acc. Muscle use GI: BS +ve NO Bruit Non Tender Non Distended : no CVA tenderness; no Suprapubic Tenderness SKIN: no visible Rashes Breast Exam deferred Mu.Sk: Adequate ROM no Muscle Atrophy Heme: Unable to palpate Obvious LAD no palp Splenomegaly NEURO: Good Strength and Tone overall; Cranial Nerves II - XII grossly intact Psych: ? 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 mayneed to accept some amount of Edema to maintain physiological Hemodynamics. Current FLuid and E-lyte status does not necessitate emergent need for Dialysis. Will re-evaluate for Dialysis in am. 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 HypoTN with subj Orthostasis) - suspect intravascular Vol Depletion. Current BP meds reviewed. See orders for changes. Oliguria as documented - may need liang for acc I/os ? Underlying CKD III based on previous trend of creat (1.6-1.8 in may 2016) Vol Depletion - due to diuretics - small dose of IV ALb can be considered if needed Edema - noted to have Sev Pulm HTN on ECHO. ^ed Protein gap - PEPs as ordered. Fe Def state in the past - currently not anemic so not HypoAlbuminemia - ? due to passive congesiton / Cardiac Cachexia? Discussed Plan of Care and prognosis etc. at length with family. Labs Labs Laboratory Tests Test 10/13/16 19:40 10/14/16 00:01 10/14/16 11:48 10/14/16 14:40 White Blood Count 7.1x10^3/uL (4.0-11.0) Red Blood Count 4.32x10^6/uL (3.50-5.40) Hemoglobin 13.3g/dL (12.0-15.5) Hematocrit 40.7% (36.0-47.0) Mean Corpuscular Volume 94fL (79-100) Mean Corpuscular Hemoglobin 31pg (25-35) Mean Corpuscular Hemoglobin Concent 33g/dL (31-37) Red Cell Distribution Width 17.8% (11.5-14.5) Platelet Count 222x10^3/uL (140-400) Neutrophils (%) (Auto) 67% (31-73) Lymphocytes (%) (Auto) 18% (24-48) Monocytes (%) (Auto) 13% (0-9) Eosinophils (%) (Auto) 1% (0-3) Basophils (%) (Auto) 1% (0-3) Neutrophils # (Auto) 4.8x10^3uL (1.8-7.7) Lymphocytes # (Auto) 1.3x10^3/uL (1.0-4.8) Monocytes # (Auto) 0.9x10^3/uL (0.0-1.1) Eosinophils # (Auto) 0.0x10^3/uL (0.0-0.7) Basophils # (Auto) 0.1x10^3/uL (0.0-0.2) Sodium Level 147mmol/L (136-145) 142mmol/L (136-145) Potassium Level 3.4mmol/L (3.5-5.1) 3.6mmol/L (3.5-5.1) Chloride Level 106mmol/L (98-107) 102mmol/L (98-107) Carbon Dioxide Level 29mmol/L (21-32) 25mmol/L (21-32) Anion Gap 12 (6-14) 15 (6-14) Blood Urea Nitrogen 26mg/dL (7-20) 33mg/dL (7-20) Creatinine 2.0mg/dL (0.6-1.0) 2.4mg/dL (0.6-1.0) Estimated GFR (Cockcroft-Gault) 28.7 23.3 BUN/Creatinine Ratio 13 (6-20) Glucose Level 89mg/dL (70-99) 108mg/dL (70-99) Calcium Level 9.1mg/dL (8.5-10.1) 9.0mg/dL (8.5-10.1) Total Bilirubin 1.6mg/dL (0.2-1.0) Aspartate Amino Transf (AST/SGOT) 31U/L (15-37) Alanine Aminotransferase (ALT/SGPT) 11U/L (14-59) Alkaline Phosphatase 161U/L (46-116) Creatine Kinase 345U/L (26-192) Creatine Kinase MB (Mass) 2.0ng/mL (0.0-3.6) Creatine Kinase MB Relative Index 0.6% (0-4) Troponin I Quantitative 0.104ng/mL (0.000-0.055) BP-Twk-D-Type Natriuretic Peptide 2782pg/mL (0-449) Total Protein 7.1g/dL (6.4-8.2) Albumin 2.8g/dL (3.4-5.0) Albumin/Globulin Ratio 0.7 (1.0-1.7) Lipase 52U/L (73-393) Clostridium difficile Toxin (PCR) Negative (Negative) O2 Saturation 89% (92-99) Arterial Blood pH 7.37 (7.35-7.45) Arterial Blood pCO2 at Patient Temp 38mmHg (35-46) Arterial Blood pO2 at Patient Temp 63mmHg (65-108) Arterial Blood HCO3 22mmol/L (21-28) Arterial Blood Base Excess -3mmol/L (-3-3) FiO2 36 Magnesium Level 2.0mg/dL (1.8-2.4) Laboratory Tests Test 10/14/16 11:48 10/14/16 14:40 O2 Saturation 89% (92-99) Arterial Blood pH 7.37 (7.35-7.45) Arterial Blood pCO2 at Patient Temp 38mmHg (35-46) Arterial Blood pO2 at Patient Temp 63mmHg (65-108) Arterial Blood HCO3 22mmol/L (21-28) Arterial Blood Base Excess -3mmol/L (-3-3) FiO2 36 Sodium Level 142mmol/L (136-145) Potassium Level 3.6mmol/L (3.5-5.1) Chloride Level 102mmol/L (98-107) Carbon Dioxide Level 25mmol/L (21-32) Anion Gap 15 (6-14) Blood Urea Nitrogen 33mg/dL (7-20) Creatinine 2.4mg/dL (0.6-1.0) Estimated GFR (Cockcroft-Gault) 23.3 Glucose Level 108mg/dL (70-99) Calcium Level 9.0mg/dL (8.5-10.1) Magnesium Level 2.0mg/dL (1.8-2.4) Images Images 1. No acute abdominal abnormality is detected. 2. Cardiomegaly and aortic atherosclerosis. 3. Mild bibasilar atelectasis superimposed upon scarring. Renal ultrasound, 11/27/2015: History: Acute kidney injury The right kidney measures 10.4 cm in length while the left kidney measures 11.7 cm. There is no evidence of hydronephrosis or renal mass. The renal parenchymal echogenicity is within normal limits. Limited views of urinary bladder show no abnormality. IMPRESSION: No significant renal abnormality is detected. The left ventricle is normal size. The left ventricle is hyperdynamic. The Ejection Fraction is 65-70%. There is mild to moderate concentric left ventricular hypertrophy. The right ventricle is moderately dilated. Systolic function is moderately reduced. The right atrium is severely dilated. There is no significant aortic valvular stenosis. Doppler and Color Flow revealed trace aortic regurgitation. Doppler and Color Flow revealed mild mitral regurgitation. Doppler and Color Flow revealed moderate to severe tricuspid regurgitation. There is moderate to severe pulmonary hypertension. The PA pressure was estimated at 60 mmHg. DESIREE LEACH MD Oct 15, 2016 07:26
--- NOTE | 2016-10-15 07:34 | HP ---
ADMIT DATE: 10/14/2016 CHIEF COMPLAINT: Shortness of breath. HISTORY OF PRESENT ILLNESS: An 86-year-old -[place]os[place] female patient with several comorbidity admissions such as coronary artery disease, COPD, obstructive sleep apnea, pulmonary hypertension, presented to the ER with complaint of shortness of breath, which is progressively getting worse for 2 weeks and also associated with lower extremity swelling. The patient gained nearly 10 pounds and she also complaints of some orthopnea and PND. She denies any noncompliance. She is taking medications and last she was admitted to the hospital in 05/2016. She denies any other symptoms such as fever, chills, nausea, vomiting, syncope or palpitations. PAST MEDICAL HISTORY: Please see my electronic H and P. REVIEW OF SYSTEMS: Please see my electronic H and P. PHYSICAL EXAMINATION: Please see my electronic H and P. LABORATORY FINDINGS: 1. Chemistry: Sodium 147, potassium 3.4, chloride is 106, anion gap is 12, BUN is 26, creatinine is 2.0, GFR is 28.7, magnesium 30, bilirubin 1.6. ProBNP is 2782, troponin is 0.104, 2. CBC: WBC 7.1, hemoglobin 13.3, MCV is 94, platelets 222. 3. Serology studies: Negative. IMAGING STUDIES: reviewed. ASSESSMENT AND PLAN: 1. Atypical chest pain. 2. Jnjyp-nx-gmfanxd congestive heart failure associated pulmonary hypertension with cor pulmonale. 3. Prior history of coronary artery disease. 4. Hypertension. 5. Hyperlipidemia. 6. CHIQUI PLAN: 1. The patient's symptoms in lower extremity swelling so I will continue with IV Lasix at this time. 2. Consult cardiology. spoke with cardiology and no further interventions needed at this time; needs adjustment of medications. 3. We will consult pulmonology. Monitor renal function. If renal function does not improve, will consult nephrology. 4. Consult palliative care previously it was listed as a DNR/DNI; however, at this time, she was full code. I will ask the palliative team to discuss with the patient about the goals of care. At this time, she is full code 5. Monitor electrolytes. 6. Home medication reviewed. 7. Prognosis guarded. KE SHAW MD DR: DAWSON/rosi JOB#: [id number] / [id number] SAE
[2016-10-15 07:53] VITALS: BP 90/73
[2016-10-15] MEDS ORDERED: MAGNESIUM SULFATE 2GM 50 ML IV PRN (08:00)
[2016-10-15] MEDS: BUDESONIDE 0.5 MG/2 ML NEBU NEB SCH ×2 (08:21→19:34)
[2016-10-15] MEDS: IPRATRPIUM/ALBUTEROL 0.5/2.5MG 3 ML NEBU. NEB SCH ×4 (08:21→19:34)
[2016-10-15] MEDS ORDERED: NON FORMULARY ITEM (Tiotropium Bromide (Spiriva) 2 INH) IH SCH (09:00)
[2016-10-15] MEDS ORDERED: METOPROLOL TART IMMED RELEASE 25 MG TABLET PO SCH (09:00)
[2016-10-15] MEDS ORDERED: NON FORMULARY ITEM (Fluticasone/Vilanterol (Breo Ellipta 100-25 Mcg Inh) 1 PUFF) INH SCH (09:00)
[2016-10-15] MEDS: ASPIRIN ENTERIC COATED 81 MG TABLET.DR. PO SCH (09:06)
[2016-10-15] MEDS: POTASSIUM CHLORIDE 20 MEQ TABLET.ER. PO SCH (09:06)
[2016-10-15] MEDS: PANTOPRAZOLE 40 MG TABLET. PO SCH (09:06)
[2016-10-15] MEDS: METOPROLOL TART IMMED RELEASE 25 MG TABLET PO SCH ×2 (09:09→21:08)
[2016-10-15] MEDS: BUMETANIDE 1 MG TABLET PO SCH ×2 (09:09→21:08)
--- NOTE | 2016-10-15 09:19 | RAD ---
Renal ultrasound, 10/15/2016: History: Acute and chronic renal failure The right kidney measures 10.1 cm in length while the left kidney measures 10.3 cm. There is no evidence of hydronephrosis or a renal mass. The renal parenchymal echogenicity is within normal limits. No abnormal perinephric process is seen. Limited views of the partially filled urinary bladder are unremarkable. IMPRESSION: No significant renal abnormality is detected.
[2016-10-15 10:13] LABS: URIC ACID 6.6 mg/dL (2.6-6.0)
--- NOTE | 2016-10-15 10:33 | PDOC ---
PROGRESS NOTES Chief Complaint Chief Complaint 1. Atypical chest pain. 2. Enitx-rj-hpvhgmb congestive heart failure associated moderate to severe pulmonary hypertension with cor pulmonale. 3. Prior history of coronary artery disease. 4. Hypertension. 5. Hyperlipidemia. 6. CHIQUI Plan diuresis Monitor electrolyte intake and out put supplemental oxygen PRN CPAP monitor Cr Pulmonology and cardiology following prognosis guarded d/w palliative team DNR/DNI PT/OT History of Present Illness History of Present Illness SOB BETTER NO FEVER NO CHILLS. Vitals Vitals Vital Signs Date Time Temp Pulse Resp B/P Pulse Ox O2 Delivery O2 Flow Rate FiO2 10/15/16 09:09 90 108/71 10/15/16 08:26 96 Nasal Cannula 2.5 10/15/16 07:53 97.7 18 97.7 Physical Exam General: Alert, Oriented X3, Cooperative, mild distress, Other (appears tired) Heart: Regular rate, Normal S1, Normal S2, Other (s4; 4/6 systolic murmur to LLS border) Lungs: Clear Abdomen: Normal bowel sounds, Soft Extremities: No cyanosis, Other (3-4+ bilateral LE pitting edema with weeping) Skin: No breakdown, No significant lesion Labs LABS Laboratory Tests Test 10/14/16 11:48 10/14/16 14:40 10/15/16 09:45 O2 Saturation 89% (92-99) Arterial Blood pH 7.37 (7.35-7.45) Arterial Blood pCO2 at Patient Temp 38mmHg (35-46) Arterial Blood pO2 at Patient Temp 63mmHg (65-108) Arterial Blood HCO3 22mmol/L (21-28) Arterial Blood Base Excess -3mmol/L (-3-3) FiO2 36 Sodium Level 142mmol/L (136-145) Potassium Level 3.6mmol/L (3.5-5.1) Chloride Level 102mmol/L (98-107) Carbon Dioxide Level 25mmol/L (21-32) Anion Gap 15 (6-14) Blood Urea Nitrogen 33mg/dL (7-20) Creatinine 2.4mg/dL (0.6-1.0) Estimated GFR (Cockcroft-Gault) 23.3 Glucose Level 108mg/dL (70-99) Calcium Level 9.0mg/dL (8.5-10.1) Magnesium Level 2.0mg/dL (1.8-2.4) Uric Acid 6.6mg/dL (2.6-6.0) Creatine Kinase 200U/L (26-192) Assessment and Plan Assessmemt and Plan Problems Medical Problems: (1) Acute on chronic congestive heart failure Status: Acute (2) Acute on chronic diastolic CHF (congestive heart failure) Status: Acute (3) Chronic renal failure, stage 4 (severe) Status: Acute (4) Elevated troponin Status: Acute (5) Severe protein-calorie malnutrition Status: Acute Problems: Comment Review of Relevant I have reviewed the following items yaakov (where applicable) has been applied. Labs Laboratory Tests Test 10/13/16 19:40 10/14/16 00:01 10/14/16 11:48 10/14/16 14:40 White Blood Count 7.1x10^3/uL (4.0-11.0) Red Blood Count 4.32x10^6/uL (3.50-5.40) Hemoglobin 13.3g/dL (12.0-15.5) Hematocrit 40.7% (36.0-47.0) Mean Corpuscular Volume 94fL (79-100) Mean Corpuscular Hemoglobin 31pg (25-35) Mean Corpuscular Hemoglobin Concent 33g/dL (31-37) Red Cell Distribution Width 17.8% (11.5-14.5) Platelet Count 222x10^3/uL (140-400) Neutrophils (%) (Auto) 67% (31-73) Lymphocytes (%) (Auto) 18% (24-48) Monocytes (%) (Auto) 13% (0-9) Eosinophils (%) (Auto) 1% (0-3) Basophils (%) (Auto) 1% (0-3) Neutrophils # (Auto) 4.8x10^3uL (1.8-7.7) Lymphocytes # (Auto) 1.3x10^3/uL (1.0-4.8) Monocytes # (Auto) 0.9x10^3/uL (0.0-1.1) Eosinophils # (Auto) 0.0x10^3/uL (0.0-0.7) Basophils # (Auto) 0.1x10^3/uL (0.0-0.2) Sodium Level 147mmol/L (136-145) 142mmol/L (136-145) Potassium Level 3.4mmol/L (3.5-5.1) 3.6mmol/L (3.5-5.1) Chloride Level 106mmol/L (98-107) 102mmol/L (98-107) Carbon Dioxide Level 29mmol/L (21-32) 25mmol/L (21-32) Anion Gap 12 (6-14) 15 (6-14) Blood Urea Nitrogen 26mg/dL (7-20) 33mg/dL (7-20) Creatinine 2.0mg/dL (0.6-1.0) 2.4mg/dL (0.6-1.0) Estimated GFR (Cockcroft-Gault) 28.7 23.3 BUN/Creatinine Ratio 13 (6-20) Glucose Level 89mg/dL (70-99) 108mg/dL (70-99) Calcium Level 9.1mg/dL (8.5-10.1) 9.0mg/dL (8.5-10.1) Total Bilirubin 1.6mg/dL (0.2-1.0) Aspartate Amino Transf (AST/SGOT) 31U/L (15-37) Alanine Aminotransferase (ALT/SGPT) 11U/L (14-59) Alkaline Phosphatase 161U/L (46-116) Creatine Kinase 345U/L (26-192) Creatine Kinase MB (Mass) 2.0ng/mL (0.0-3.6) Creatine Kinase MB Relative Index 0.6% (0-4) Troponin I Quantitative 0.104ng/mL (0.000-0.055) CY-Zgd-F-Type Natriuretic Peptide 2782pg/mL (0-449) Total Protein 7.1g/dL (6.4-8.2) Albumin 2.8g/dL (3.4-5.0) Albumin/Globulin Ratio 0.7 (1.0-1.7) Lipase 52U/L (73-393) Clostridium difficile Toxin (PCR) Negative (Negative) O2 Saturation 89% (92-99) Arterial Blood pH 7.37 (7.35-7.45) Arterial Blood pCO2 at Patient Temp 38mmHg (35-46) Arterial Blood pO2 at Patient Temp 63mmHg (65-108) Arterial Blood HCO3 22mmol/L (21-28) Arterial Blood Base Excess -3mmol/L (-3-3) FiO2 36 Magnesium Level 2.0mg/dL (1.8-2.4) Test 10/15/16 09:45 Uric Acid 6.6mg/dL (2.6-6.0) Creatine Kinase 200U/L (26-192) Laboratory Tests Test 10/14/16 11:48 10/14/16 14:40 10/15/16 09:45 O2 Saturation 89% (92-99) Arterial Blood pH 7.37 (7.35-7.45) Arterial Blood pCO2 at Patient Temp 38mmHg (35-46) Arterial Blood pO2 at Patient Temp 63mmHg (65-108) Arterial Blood HCO3 22mmol/L (21-28) Arterial Blood Base Excess -3mmol/L (-3-3) FiO2 36 Sodium Level 142mmol/L (136-145) Potassium Level 3.6mmol/L (3.5-5.1) Chloride Level 102mmol/L (98-107) Carbon Dioxide Level 25mmol/L (21-32) Anion Gap 15 (6-14) Blood Urea Nitrogen 33mg/dL (7-20) Creatinine 2.4mg/dL (0.6-1.0) Estimated GFR (Cockcroft-Gault) 23.3 Glucose Level 108mg/dL (70-99) Calcium Level 9.0mg/dL (8.5-10.1) Magnesium Level 2.0mg/dL (1.8-2.4) Uric Acid 6.6mg/dL (2.6-6.0) Creatine Kinase 200U/L (26-192) Medications Current Medications Sodium Chloride (Iv Sodium Chloride 0.9% 1000ml Bag) 1,000 ml @ 100 mls/hr Q10H IV Last administered on 10/13/16 19:51; Start 10/13/16 at 18:12; Stop at 04:11; Status DC Ondansetron HCl (Zofran) 4 mg 1X ONCE IV Last administered on 10/13/16 19:51 ; Start 10/13/16 at 18:15; Stop 10/13/16 at 18:16; Status DC Famotidine (Pepcid) 20 mg 1X ONCE IVP Last administered on 10/13/16 19:51; Start 10/13/16 at 18:15; Stop 10/13/16 at 18:16; Status DC Furosemide (Lasix) 40 mg 1X ONCE IVP Last administered on 10/14/16 11:25; Start 10/14/16 at 11:00; Stop 10/14/16 at 11:01; Status DC Amlodipine Besylate (Norvasc) 5 mg DAILY PO Last administered on 10/14/16 11: 42; Start 10/14/16 at 11:00 Aspirin (Ecotrin) 81 mg DAILYWBKFT PO Last administered on 10/15/16 09:06; Start 10/14/16 at 11:00 Atorvastatin Calcium (Lipitor) 20 mg HS PO Last administered on 10/14/16 21:08 ; Start 10/14/16 at 21:00 Bumetanide (Bumex) 1 mg BID PO Last administered on 10/15/16 09:09; Start at 11:00 Metoprolol Tartrate (Lopressor) 12.5 mg BID PO Last administered on 10/15/16 09:09; Start 10/14/16 at 11:00 Metoprolol Tartrate (Lopressor) 25 mg DAILY PO ; Start 10/15/16 at 09:00; Stop 10/15/16 at 09:00; Status DC Potassium Chloride (Klor-Con) 20 meq DAILYWBKFT PO Last administered on 09:06; Start 10/14/16 at 11:00 Non-Formulary Medication 1 puff PRN Q6HRS PRN INH SHORTNESS OF BREATH; Start at 10:45; Stop 10/14/16 at 11:05; Status DC Non-Formulary Medication 1 puff DAILY INH ; Start 10/15/16 at 09:00; Stop at 09:00; Status DC Metolazone (Zaroxolyn) 5 mg DAILY PO Last administered on 10/14/16 11:25; Start 10/14/16 at 11:00 Non-Formulary Medication 2 inh DAILY IH ; Start 10/15/16 at 09:00; Stop at 09:00; Status DC Albuterol/ Ipratropium (Duoneb) 3 ml RTQID NEB Last administered on 10/15/16 08:21; Start 10/14/16 at 12:00 Budesonide (Pulmicort) 0.5 mg RTBID NEB Last administered on 10/15/16 08:21; Start 10/14/16 at 11:00 Albuterol Sulfate (Ventolin Neb Soln) 2.5 mg PRN Q6HRS PRN NEB SHORTNESS OF BREATH; Start 10/14/16 at 11:00 Pantoprazole Sodium 40 mg 40 mg DAILYAC PO Last administered on 10/15/16 09:06 ; Start 10/14/16 at 13:00 Magnesium Sulfate/ Dextrose (Magnesium Sulfate PREMIX 2GM) 50 ml @ 25 mls/hr PRN DAILY PRN IV for Mag < 1.7 on am labs; Start 10/15/16 at 08:00 Active Scripts Active Klor-Con M20 (Potassium Chloride) 20 Meq Tab.er.prt 20 Meq PO DAILYWBKFT Metoprolol Tartrate 25 Mg Tablet 12.5 Mg PO BID Metolazone 5 Mg Tablet 5 Mg PO DAILY Aspirin Ec (Aspirin) 81 Mg Tablet.dr 81 Mg PO DAILYWBKFT Breo Ellipta 100-25 Mcg Inh (Fluticasone/Vilanterol) 1 Each Aer.pow.ba 1 Puff INH DAILY Bumetanide 1 Mg Tablet 1 Mg PO BID Amlodipine Besylate 5 Mg Tablet 5 Mg PO DAILY Reported Furosemide 40 Mg Tablet 40 Mg PO [id number] Acetaminophen 500 Mg Tablet 500 Mg PO PRN Q6HRS PRN Metoprolol Tartrate 25 Mg Tablet 25 Mg PO DAILY Proair Hfa Inhaler (Albuterol Sulfate) 8.5 Gm Hfa.aer.ad 1 Puff INH PRN Q6HRS PRN Spiriva (Tiotropium [place]) 18 Mcg Cap.w.dev 2 Inh IH DAILY Lipitor (Atorvastatin Calcium) 20 Mg Tablet 20 Mg PO HS NITROGLYCERIN SubLingual (Nitroglycerin) 0.4 Mg Tab.subl 0.4 Mg SL PRN Vitals/I & O Vital Sign - Last 24 Hours 10/14/16 10/14/16 10/14/16 10/14/16 11:00 11:42 11:46 15:00 Temp 97.4 97.9 97.4 97.9 Pulse 74 74 80 71 Resp 22 22 B/P 133/62 125/82 125/82 117/51 Pulse Ox 97 96 O2 Delivery Nasal Cannula Nasal Cannula O2 Flow Rate 3.5 3.5 10/14/16 10/14/16 10/14/16 10/14/16 16:05 19:01 19:03 19:59 Temp 96.7 96.7 Pulse 78 Resp 21 B/P 78/62 Pulse Ox 94 O2 Delivery Nasal Cannula Nasal Cannula Nasal Cannula Nasal Cannula O2 Flow Rate 3.0 3.0 3.0 3.5 10/14/16 10/14/16 10/14/16 10/15/16 20:00 21:00 23:11 03:26 Temp 97.7 97.3 97.7 97.3 Pulse 75 77 Resp 20 18 B/P 88/55 105/72 106/63 Pulse Ox 94 92 O2 Delivery Nasal Cannula Nasal Cannula Nasal Cannula O2 Flow Rate 4.0 2.5 2.5 10/15/16 10/15/16 10/15/16 10/15/16 07:53 08:00 08:23 08:26 Temp 97.7 97.7 Pulse 155 Resp 18 B/P 90/73 Pulse Ox 94 96 96 O2 Delivery Nasal Cannula Nasal Cannula Nasal Cannula Nasal Cannula O2 Flow Rate 2.5 2.5 2.5 10/15/16 09:09 Pulse 90 B/P 108/71 Intake and Output 10/14/16 10/14/16 10/15/16 15:00 23:00 07:00 Intake Total 300 ml Output Total 250 ml 150 ml Balance 50 ml -150 ml KE SHAW MD Oct 15, 2016 10:33
[2016-10-15] MEDS: METOLAZONE 2.5 MG TABLET PO SCH (10:52)
[2016-10-15] MEDS: AMLODIPINE BESYLATE 5 MG TABLET PO SCH (10:52)
--- NOTE | 2016-10-15 11:03 | PDOC ---
CARDIO Progress Notes Date and Time Date of Service 10/15/16 Time of Evaluation 1115 Subjective Subjective: Other (intermittent shortness of breath, breathing overal improved) Vitals Vitals Vital Signs Date Time Temp Pulse Resp B/P Pulse Ox O2 Delivery O2 Flow Rate FiO2 10/15/16 10:52 90 108/71 10/15/16 08:26 96 Nasal Cannula 2.5 10/15/16 07:53 97.7 18 97.7 Weight Weight [ ] Input and Output Intake and Output Intake and Output 10/15/16 07:00 Intake Total 300 ml Output Total 400 ml Balance -100 ml Intake Oral 300 ml Output Urine Total 400 ml Laboratory Labs Laboratory Tests Test 10/14/16 11:48 10/14/16 14:40 10/15/16 09:45 O2 Saturation 89% (92-99) Arterial Blood pH 7.37 (7.35-7.45) Arterial Blood pCO2 at Patient Temp 38mmHg (35-46) Arterial Blood pO2 at Patient Temp 63mmHg (65-108) Arterial Blood HCO3 22mmol/L (21-28) Arterial Blood Base Excess -3mmol/L (-3-3) FiO2 36 Sodium Level 142mmol/L (136-145) Potassium Level 3.6mmol/L (3.5-5.1) Chloride Level 102mmol/L (98-107) Carbon Dioxide Level 25mmol/L (21-32) Anion Gap 15 (6-14) Blood Urea Nitrogen 33mg/dL (7-20) Creatinine 2.4mg/dL (0.6-1.0) Estimated GFR (Cockcroft-Gault) 23.3 Glucose Level 108mg/dL (70-99) Calcium Level 9.0mg/dL (8.5-10.1) Magnesium Level 2.0mg/dL (1.8-2.4) Uric Acid 6.6mg/dL (2.6-6.0) Creatine Kinase 200U/L (26-192) Physical Exam HEENT: Neck Supple W Full Motion Chest: Symmetric LUNGS: Other (tachypneic ) Heart: S1S2, murmurs (3/6 systolic murmur ), other (tele sinus arrhythmia with PACs) Abdomen: Soft N/T Extremities: Other (1+ DP pulses bilaterally. 1+ bilateral LE edema ) Neurology: alert, oriented, follow commands Assessment Assessment 1. Chest pain, atypical 3. Acute on chronic diastolic right-sided HF 4. Severe pulmonary HTN/cor pulmonale/AE COPD 5. CAD: recent LHC with patent RCA stent. 6. HTN: controlled 7. HLP 8. CHIQUI on CKD3 9. Tachy-kelsey; had episode of HR 46 followed by 160's overnight Recommendations 1. Echo with LVH, right ventricular systolic dysfunction, and severe pul HTN. Paradoxic septum consistent right ventricle volume overload. continue diuresis with monitoring of renal function. 2. Continue metoprolol at current dose for now; monitor telemetry for further episodes of bradycardia- d/w primary cardiology 3. Palliative care following- plan for home with Hospice. 4. supportive care. LIEN SCHNEIDER APRN Oct 15, 2016 11:03
[2016-10-15 11:12] VITALS: BP 108/68
[2016-10-15 11:17] LABS: CALCIUM 9.2 mg/dL (8.5-10.1); CREATININE 2.9 mg/dL (0.6-1.0); GFR 18.7; MAGNESIUM 2.2 mg/dL (1.8-2.4); POTASSIUM 4.1 mmol/L (3.5-5.1)
--- NOTE | 2016-10-15 11:40 | PDOC2 ---
PALLIATIVE CARE Palliative Care Note Palliative Care Consult requested by Dr. Naqvi to address goals of care/code status. Patient known to palliative care from previous admission. Diagnosis: CHF; Renal failure; P/C malnutrition; PA pressure 60 Patient alert. Denies pain. SOB. Discussed code status with patient. States she had made the decision for no resuscitation when she was here before but wants discussion with family/ daughter Seth Spoke with daughter Seth per phone. Family is supportive of her mother's wishes for DNR/DNI They had tried to make contact with hospice prior to hospitalization. She is not sure which agency. Dipesh will check with family member and return call about agency preferred. Outside the Hospital DNR/DNI formed signed by patient and wishes were confirmed with daughter Await decision about Hospice. . 1200 Daughter returned call. They would like [facility]. Will get order for eval and treat. [facility] is meeting with daughter tomorrow. CRISTOFER BUNN Oct 15, 2016 11:40
--- NOTE | 2016-10-15 12:38 | PDOC ---
Provider Note Provider Note dictated MAURICIO CROWE MD Oct 15, 2016 12:38
--- NOTE | 2016-10-15 13:14 | CONS ---
DATE OF CONSULTATION: ATTENDING PHYSICIAN: Dr. Naqvi. REASON FOR CONSULTATION: Dyspnea. HISTORY OF PRESENT ILLNESS: The patient is an 86-year-old -[place] female who has a history of biventricular failure, history of coronary artery disease, COPD, chronic respiratory failure and obstructive sleep apnea and nbxvrpxg-uq-ddplvc pulmonary hypertension. She was brought into the hospital after she developed increasing edema of the lower extremities and also gained 10 pounds. She states she was drinking extra water. She has some orthopnea and PND. Her chest x-ray was reviewed and shows moderate cardiomegaly and bibasilar atelectasis and some prominent interstitial markings. Consultation requested for further evaluation and management. PAST MEDICAL HISTORY: Please review from my previous consults. She has a history of biventricular failure. She has a history of previous right and left heart catheterization, which is consistent with biventricular failure, history of COPD, chronic respiratory failure, CESAR, OHS. PAST SURGICAL HISTORY: No recent surgeries. ALLERGIES: None to any medications. CURRENT MEDICATIONS: Reviewed as listed in the MRAD including diuretic metolazone and Bumex. REVIEW OF SYSTEMS: Twelve-point systems obtained. Pertinent positives discussed in my history of present illness, otherwise noncontributory. All systems that were negative were reviewed as well. SOCIAL HISTORY: Has a history of tobacco use, but no longer smokes cigarettes. PHYSICAL EXAMINATION: VITAL SIGNS: Shows blood pressure 108/68, pulse ox 92% on 2.5 liters. NECK: Supple. LUNGS: Diminished breath sounds. CARDIOVASCULAR: Regular rate ____. ABDOMEN: Soft, nontender. EXTREMITIES: With bilateral pitting edema. LABORATORY DATA: Reviewed. White cell count 7.1, hemoglobin 13.3 and platelets are 222, BUN ____ and creatinine of 2.9. ABGs with a pH of 7.37, pCO2 of ____, pO2 63, bicarbonate 22. C. diff is negative. IMPRESSION: 1. Acute on chronic respiratory failure, most likely secondary to development of right and left heart failure. 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 Now comes in with increasing edema, orthopnea and dyspnea. 2. Nlzlfvfq-xo-asxnsi pulmonary hypertension. Previous echo had shown PA pressures in the 80s and now it is in the 60s. This is secondary pulmonary hypertension related to combination of diastolic dysfunction and underlying pulmonary condition including chronic obstructive pulmonary disease and obstructive sleep apnea/obesity hypoventilation syndrome. 3. Underlying obstructive sleep apnea. 4. Underlying chronic obstructive pulmonary disease with chronic respiratory failure. 5. Acute on chronic renal failure. RECOMMENDATIONS: 1. Continue with present diuresis with close monitoring of her renal function. 2. Continue oxygen to keep sats 92%. 3. Bronchodilators. 4. The patient was encouraged to use a CPAP at night time. There are some mask issues, which can be dealt as an outpatient. 5. Follow Cardiology recommendations. 6. We will follow along with you. MAURICIO CROWE MD DR: DYLAN/rosi JOB#: [id number] / [id number] SAE
[2016-10-15 14:11] LABS: BILIRUBIN,URINE NEGATIVE (NEG); GLUCOSE,URINE NEGATIVE (NEG); NITRITE,URINE NEGATIVE (NEG); PROTEIN,URINE NEGATIVE (NEG-TRACE)
[2016-10-15 14:28] VITALS: BP 109/72
[2016-10-15 14:44] LABS: BACTERIA,URINE MODERATE /HPF (0-FEW); RBC,URINE 0 /HPF (0-2); WBC,URINE 0 /HPF (0-4)
[2016-10-15 19:25] VITALS: BP 132/76
[2016-10-15] MEDS: ATORVASTATIN CALCIUM 20 MG TABLET PO SCH (21:08)
[2016-10-15 23:15] VITALS: BP 103/65
[2016-10-16] VITALS (7 sets, daily range): BP systolic 101–134; BP diastolic 64–71
[2016-10-16 04:57] LABS: ALBUMIN 2.7 g/dL (3.4-5.0); CALCIUM 9.2 mg/dL (8.5-10.1); CREATININE 2.9 mg/dL (0.6-1.0); GFR 18.7; PHOSPHORUS 5.1 mg/dL (2.6-4.7)
[2016-10-16] MEDS: PANTOPRAZOLE 40 MG TABLET. PO SCH (07:49)
[2016-10-16] MEDS: AMLODIPINE BESYLATE 5 MG TABLET PO SCH (07:49)
[2016-10-16] MEDS: POTASSIUM CHLORIDE 20 MEQ TABLET.ER. PO SCH (07:50)
[2016-10-16] MEDS: METOLAZONE 2.5 MG TABLET PO SCH (07:50)
[2016-10-16] MEDS: ASPIRIN ENTERIC COATED 81 MG TABLET.DR. PO SCH (07:50)
[2016-10-16] MEDS: BUMETANIDE 1 MG TABLET PO SCH ×2 (07:50→21:45)
[2016-10-16] MEDS: METOPROLOL TART IMMED RELEASE 25 MG TABLET PO SCH ×2 (07:52→21:00)
[2016-10-16] MEDS: IPRATRPIUM/ALBUTEROL 0.5/2.5MG 3 ML NEBU. NEB SCH ×4 (08:00→19:26)
--- NOTE | 2016-10-16 10:15 | PDOC ---
SUBJECTIVE ROS CHIQUI OBJECTIVE Vital Signs Vital Signs Date Time Temp Pulse Resp B/P Pulse Ox O2 Delivery O2 Flow Rate FiO2 10/16/16 07:52 70 113/71 10/16/16 07:50 97.6 18 95 Room Air 2.5 97.6 I & 0 Intake and Output 10/16/16 07:00 Intake Total 620 ml Output Total 850 ml Balance -230 ml Intake Oral 620 ml Output Urine Total 850 ml # Voids 2 PHYSICAL EXAM Physical Exam General Appearance: Awake: Alert Oriented x 3 Neck: + JVD + JVP Chest: CTA [place] Heart: S1 S2 Abdomen - Soft NTND Extremities - No Edema DIAGNOSIS/ASSESSMENT Assessment & Plan CHIQUI - Pre-Renal Pt and family moving towards hospice - so I will sign off and will be available prn Problems: COMMENT/RELEVANT DATA Meds Current Medications Medications (Trade) Dose Ordered Sig/Chacho Start Time Stop Time Status Last Admin Dose Admin Albuterol Sulfate (Ventolin Neb Soln) 2.5 mg PRN Q6HRS PRN 10/14/16 11:00 Albuterol/ Ipratropium (Duoneb) 3 ml RTQID 10/14/16 12:00 10/15/16 19:34 3 ML Amlodipine Besylate (Norvasc) 5 mg DAILY 10/14/16 11:00 10/16/16 07:49 5 MG Aspirin (Ecotrin) 81 mg DAILYWBKFT 10/14/16 11:00 10/16/16 07:50 81 MG Atorvastatin Calcium (Lipitor) 20 mg HS 10/14/16 21:00 10/15/16 21:08 20 MG Budesonide (Pulmicort) 0.5 mg RTBID 10/14/16 11:00 10/15/16 19:34 0.5 MG Bumetanide (Bumex) 1 mg BID 10/14/16 11:00 10/16/16 07:50 1 MG Famotidine (Pepcid) 20 mg 1X ONCE 10/13/16 18:15 10/13/16 18:16 DC 10/13/16 19:51 20 MG Furosemide (Lasix) 40 mg 1X ONCE 10/14/16 11:00 10/14/16 11:01 DC 10/14/16 11:25 40 MG Magnesium Sulfate/ Dextrose (Magnesium Sulfate PREMIX 2GM) 50 ml @ 25 mls/hr PRN DAILY PRN 10/15/16 08:00 Metolazone (Zaroxolyn) 5 mg DAILY 10/14/16 11:00 10/16/16 07:50 5 MG Metoprolol Tartrate (Lopressor) 25 mg DAILY 10/15/16 09:00 10/15/16 09:00 DC Non-Formulary Medication 2 inh DAILY 10/15/16 09:00 10/15/16 09:00 DC Ondansetron HCl (Zofran) 4 mg 1X ONCE 10/13/16 18:15 10/13/16 18:16 DC 10/13/16 19:51 4 MG Pantoprazole Sodium 40 mg 40 mg DAILYAC 10/14/16 13:00 10/16/16 07:49 40 MG Potassium Chloride (Klor-Con) 20 meq DAILYWBKFT 10/14/16 11:00 10/16/16 07:50 20 MEQ Sodium Chloride (Iv Sodium Chloride 0.9% 1000ml Bag) 1,000 ml @ 100 mls/hr Q10H 10/13/16 18:12 10/14/16 04:11 DC 10/13/16 19:51 100 MLS/HR Lab Laboratory Tests Test 10/15/16 13:40 10/16/16 04:00 Urine Collection Type Unknown Urine Color Yellow Urine Clarity Clear Urine pH 5.0 Urine Specific [place] 1.010 Urine Protein Negativemg/dL (NEG-TRACE) Urine Glucose (UA) Negativemg/dL (NEG) Urine Ketones (Stick) Negativemg/dL (NEG) Urine Blood Negative (NEG) Urine Nitrite Negative (NEG) Urine Bilirubin Negative (NEG) Urine Urobilinogen Dipstick 1.0mg/dL (0.2 mg/dL) Urine Leukocyte Esterase Negative (NEG) Urine RBC 0/HPF (0-2) Urine WBC 0/HPF (0-4) Urine Transitional Epithelial Cells Few/LPF Urine Bacteria Moderate/HPF (0-FEW) Urine Hyaline Casts Many/HPF Urine Random Sodium 81mmol/L (Not Estab.) Hemoglobin 12.4g/dL (12.0-15.5) Sodium Level 142mmol/L (136-145) Potassium Level 4.0mmol/L (3.5-5.1) Chloride Level 101mmol/L (98-107) Carbon Dioxide Level 28mmol/L (21-32) Anion Gap 13 (6-14) Blood Urea Nitrogen 45mg/dL (7-20) Creatinine 2.9mg/dL (0.6-1.0) Estimated GFR (Cockcroft-Gault) 18.7 Glucose Level 101mg/dL (70-99) Calcium Level 9.2mg/dL (8.5-10.1) Phosphorus Level 5.1mg/dL (2.6-4.7) Magnesium Level 2.3mg/dL (1.8-2.4) Albumin 2.7g/dL (3.4-5.0) DESIREE LEACH MD Oct 16, 2016 10:15
--- NOTE | 2016-10-16 10:31 | PDOC ---
PROGRESS NOTES Chief Complaint Chief Complaint 1. Atypical chest pain. 2. 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 3. Prior history of coronary artery disease. 4. Hypertension. 5. Hyperlipidemia. 6. CHIQUI Plan Limit iuresis Monitor electrolyte intake and out put supplemental oxygen PRN CPAP monitor Cr , worsening. Pulmonology and cardiology following prognosis guarded Palliative team meeting with family today, Prognosis guarded. DNR/DNI PT/OT History of Present Illness History of Present Illness SOB BETTER NO FEVER NO CHILLS. Vitals Vitals Vital Signs Date Time Temp Pulse Resp B/P Pulse Ox O2 Delivery O2 Flow Rate FiO2 10/16/16 07:52 70 113/71 10/16/16 07:50 97.6 18 95 Room Air 2.5 97.6 Physical Exam General: Alert, Cooperative, mild distress, Other Heart: Regular rate, Normal S1, Normal S2, Other Lungs: Clear Abdomen: Normal bowel sounds, Soft Extremities: No cyanosis, Other Skin: No breakdown, No significant lesion Labs LABS Laboratory Tests Test 10/15/16 13:40 10/16/16 04:00 Urine Collection Type Unknown Urine Color Yellow Urine Clarity Clear Urine pH 5.0 Urine Specific [place] 1.010 Urine Protein Negativemg/dL (NEG-TRACE) Urine Glucose (UA) Negativemg/dL (NEG) Urine Ketones (Stick) Negativemg/dL (NEG) Urine Blood Negative (NEG) Urine Nitrite Negative (NEG) Urine Bilirubin Negative (NEG) Urine Urobilinogen Dipstick 1.0mg/dL (0.2 mg/dL) Urine Leukocyte Esterase Negative (NEG) Urine RBC 0/HPF (0-2) Urine WBC 0/HPF (0-4) Urine Transitional Epithelial Cells Few/LPF Urine Bacteria Moderate/HPF (0-FEW) Urine Hyaline Casts Many/HPF Urine Random Sodium 81mmol/L (Not Estab.) Hemoglobin 12.4g/dL (12.0-15.5) Sodium Level 142mmol/L (136-145) Potassium Level 4.0mmol/L (3.5-5.1) Chloride Level 101mmol/L (98-107) Carbon Dioxide Level 28mmol/L (21-32) Anion Gap 13 (6-14) Blood Urea Nitrogen 45mg/dL (7-20) Creatinine 2.9mg/dL (0.6-1.0) Estimated GFR (Cockcroft-Gault) 18.7 Glucose Level 101mg/dL (70-99) Calcium Level 9.2mg/dL (8.5-10.1) Phosphorus Level 5.1mg/dL (2.6-4.7) Magnesium Level 2.3mg/dL (1.8-2.4) Albumin 2.7g/dL (3.4-5.0) Assessment and Plan Assessmemt and Plan Problems Medical Problems: (1) Acute on chronic congestive heart failure Status: Acute (2) Acute on chronic diastolic CHF (congestive heart failure) Status: Acute (3) Chronic renal failure, stage 4 (severe) Status: Acute (4) Elevated troponin Status: Acute (5) Severe protein-calorie malnutrition Status: Acute Problems: Comment Review of Relevant I have reviewed the following items yaakov (where applicable) has been applied. Labs Laboratory Tests Test 10/14/16 11:48 10/14/16 14:40 10/15/16 09:45 10/15/16 13:40 O2 Saturation 89% (92-99) Arterial Blood pH 7.37 (7.35-7.45) Arterial Blood pCO2 at Patient Temp 38mmHg (35-46) Arterial Blood pO2 at Patient Temp 63mmHg (65-108) Arterial Blood HCO3 22mmol/L (21-28) Arterial Blood Base Excess -3mmol/L (-3-3) FiO2 36 Sodium Level 142mmol/L (136-145) 142mmol/L (136-145) Potassium Level 3.6mmol/L (3.5-5.1) 4.1mmol/L (3.5-5.1) Chloride Level 102mmol/L (98-107) 102mmol/L (98-107) Carbon Dioxide Level 25mmol/L (21-32) 25mmol/L (21-32) Anion Gap 15 (6-14) 15 (6-14) Blood Urea Nitrogen 33mg/dL (7-20) 41mg/dL (7-20) Creatinine 2.4mg/dL (0.6-1.0) 2.9mg/dL (0.6-1.0) Estimated GFR (Cockcroft-Gault) 23.3 18.7 Glucose Level 108mg/dL (70-99) 109mg/dL (70-99) Calcium Level 9.0mg/dL (8.5-10.1) 9.2mg/dL (8.5-10.1) Magnesium Level 2.0mg/dL (1.8-2.4) 2.2mg/dL (1.8-2.4) Uric Acid 6.6mg/dL (2.6-6.0) Creatine Kinase 200U/L (26-192) Troponin I Quantitative 0.319ng/mL (0.000-0.055) Urine Collection Type Unknown Urine Color Yellow Urine Clarity Clear Urine pH 5.0 Urine Specific [place] 1.010 Urine Protein Negativemg/dL (NEG-TRACE) Urine Glucose (UA) Negativemg/dL (NEG) Urine Ketones (Stick) Negativemg/dL (NEG) Urine Blood Negative (NEG) Urine Nitrite Negative (NEG) Urine Bilirubin Negative (NEG) Urine Urobilinogen Dipstick 1.0mg/dL (0.2 mg/dL) Urine Leukocyte Esterase Negative (NEG) Urine RBC 0/HPF (0-2) Urine WBC 0/HPF (0-4) Urine Transitional Epithelial Cells Few/LPF Urine Bacteria Moderate/HPF (0-FEW) Urine Hyaline Casts Many/HPF Urine Random Sodium 81mmol/L (Not Estab.) Test 10/16/16 04:00 Hemoglobin 12.4g/dL (12.0-15.5) Sodium Level 142mmol/L (136-145) Potassium Level 4.0mmol/L (3.5-5.1) Chloride Level 101mmol/L (98-107) Carbon Dioxide Level 28mmol/L (21-32) Anion Gap 13 (6-14) Blood Urea Nitrogen 45mg/dL (7-20) Creatinine 2.9mg/dL (0.6-1.0) Estimated GFR (Cockcroft-Gault) 18.7 Glucose Level 101mg/dL (70-99) Calcium Level 9.2mg/dL (8.5-10.1) Phosphorus Level 5.1mg/dL (2.6-4.7) Magnesium Level 2.3mg/dL (1.8-2.4) Albumin 2.7g/dL (3.4-5.0) Laboratory Tests Test 10/15/16 13:40 10/16/16 04:00 Urine Collection Type Unknown Urine Color Yellow Urine Clarity Clear Urine pH 5.0 Urine Specific [place] 1.010 Urine Protein Negativemg/dL (NEG-TRACE) Urine Glucose (UA) Negativemg/dL (NEG) Urine Ketones (Stick) Negativemg/dL (NEG) Urine Blood Negative (NEG) Urine Nitrite Negative (NEG) Urine Bilirubin Negative (NEG) Urine Urobilinogen Dipstick 1.0mg/dL (0.2 mg/dL) Urine Leukocyte Esterase Negative (NEG) Urine RBC 0/HPF (0-2) Urine WBC 0/HPF (0-4) Urine Transitional Epithelial Cells Few/LPF Urine Bacteria Moderate/HPF (0-FEW) Urine Hyaline Casts Many/HPF Urine Random Sodium 81mmol/L (Not Estab.) Hemoglobin 12.4g/dL (12.0-15.5) Sodium Level 142mmol/L (136-145) Potassium Level 4.0mmol/L (3.5-5.1) Chloride Level 101mmol/L (98-107) Carbon Dioxide Level 28mmol/L (21-32) Anion Gap 13 (6-14) Blood Urea Nitrogen 45mg/dL (7-20) Creatinine 2.9mg/dL (0.6-1.0) Estimated GFR (Cockcroft-Gault) 18.7 Glucose Level 101mg/dL (70-99) Calcium Level 9.2mg/dL (8.5-10.1) Phosphorus Level 5.1mg/dL (2.6-4.7) Magnesium Level 2.3mg/dL (1.8-2.4) Albumin 2.7g/dL (3.4-5.0) Medications Current Medications Sodium Chloride (Iv Sodium Chloride 0.9% 1000ml Bag) 1,000 ml @ 100 mls/hr Q10H IV Last administered on 10/13/16 19:51; Start 10/13/16 at 18:12; Stop at 04:11; Status DC Ondansetron HCl (Zofran) 4 mg 1X ONCE IV Last administered on 10/13/16 19:51 ; Start 10/13/16 at 18:15; Stop 10/13/16 at 18:16; Status DC Famotidine (Pepcid) 20 mg 1X ONCE IVP Last administered on 10/13/16 19:51; Start 10/13/16 at 18:15; Stop 10/13/16 at 18:16; Status DC Furosemide (Lasix) 40 mg 1X ONCE IVP Last administered on 10/14/16 11:25; Start 10/14/16 at 11:00; Stop 10/14/16 at 11:01; Status DC Amlodipine Besylate (Norvasc) 5 mg DAILY PO Last administered on 10/16/16 07: 49; Start 10/14/16 at 11:00 Aspirin (Ecotrin) 81 mg DAILYWBKFT PO Last administered on 10/16/16 07:50; Start 10/14/16 at 11:00 Atorvastatin Calcium (Lipitor) 20 mg HS PO Last administered on 10/15/16 21:08 ; Start 10/14/16 at 21:00 Bumetanide (Bumex) 1 mg BID PO Last administered on 10/16/16 07:50; Start at 11:00 Metoprolol Tartrate (Lopressor) 12.5 mg BID PO Last administered on 10/16/16 07:52; Start 10/14/16 at 11:00 Metoprolol Tartrate (Lopressor) 25 mg DAILY PO ; Start 10/15/16 at 09:00; Stop 10/15/16 at 09:00; Status DC Potassium Chloride (Klor-Con) 20 meq DAILYWBKFT PO Last administered on 07:50; Start 10/14/16 at 11:00 Non-Formulary Medication 1 puff PRN Q6HRS PRN INH SHORTNESS OF BREATH; Start at 10:45; Stop 10/14/16 at 11:05; Status DC Non-Formulary Medication 1 puff DAILY INH ; Start 10/15/16 at 09:00; Stop at 09:00; Status DC Metolazone (Zaroxolyn) 5 mg DAILY PO Last administered on 10/16/16 07:50; Start 10/14/16 at 11:00 Non-Formulary Medication 2 inh DAILY IH ; Start 10/15/16 at 09:00; Stop at 09:00; Status DC Albuterol/ Ipratropium (Duoneb) 3 ml RTQID NEB Last administered on 10/15/16 19:34; Start 10/14/16 at 12:00 Budesonide (Pulmicort) 0.5 mg RTBID NEB Last administered on 10/15/16 19:34; Start 10/14/16 at 11:00 Albuterol Sulfate (Ventolin Neb Soln) 2.5 mg PRN Q6HRS PRN NEB SHORTNESS OF BREATH; Start 10/14/16 at 11:00 Pantoprazole Sodium 40 mg 40 mg DAILYAC PO Last administered on 10/16/16 07:49 ; Start 10/14/16 at 13:00 Magnesium Sulfate/ Dextrose (Magnesium Sulfate PREMIX 2GM) 50 ml @ 25 mls/hr PRN DAILY PRN IV for Mag < 1.7 on am labs; Start 10/15/16 at 08:00 Active Scripts Active Klor-Con M20 (Potassium Chloride) 20 Meq Tab.er.prt 20 Meq PO DAILYWBKFT Metoprolol Tartrate 25 Mg Tablet 12.5 Mg PO BID Metolazone 5 Mg Tablet 5 Mg PO DAILY Aspirin Ec (Aspirin) 81 Mg Tablet.dr 81 Mg PO DAILYWBKFT Breo Ellipta 100-25 Mcg Inh (Fluticasone/Vilanterol) 1 Each Aer.pow.ba 1 Puff INH DAILY Bumetanide 1 Mg Tablet 1 Mg PO BID Amlodipine Besylate 5 Mg Tablet 5 Mg PO DAILY Reported Furosemide 40 Mg Tablet 40 Mg PO [id number] Acetaminophen 500 Mg Tablet 500 Mg PO PRN Q6HRS PRN Metoprolol Tartrate 25 Mg Tablet 25 Mg PO DAILY Proair Hfa Inhaler (Albuterol Sulfate) 8.5 Gm Hfa.aer.ad 1 Puff INH PRN Q6HRS PRN Spiriva (Tiotropium [place]) 18 Mcg Cap.w.dev 2 Inh IH DAILY Lipitor (Atorvastatin Calcium) 20 Mg Tablet 20 Mg PO HS NITROGLYCERIN SubLingual (Nitroglycerin) 0.4 Mg Tab.subl 0.4 Mg SL PRN Vitals/I & O Vital Sign - Last 24 Hours 10/15/16 10/15/16 10/15/16 10/15/16 10:52 11:12 11:58 14:28 Temp 96.3 97.6 96.3 97.6 Pulse 90 66 65 Resp 20 22 B/P 108/71 108/68 109/72 Pulse Ox 92 95 O2 Delivery Nasal Cannula Nasal Cannula Nasal Cannula O2 Flow Rate 2.5 10/15/16 10/15/16 10/15/16 10/15/16 16:10 19:25 19:33 19:51 Temp 98.4 98.4 Pulse 69 Resp 18 B/P 132/76 Pulse Ox 99 95 O2 Delivery Nasal Cannula Nasal Cannula Nasal Cannula Nasal Cannula O2 Flow Rate 2.5 2.5 2.5 2.5 10/15/16 10/15/16 10/16/16 10/16/16 21:08 23:15 03:43 07:49 Temp 98.6 98.5 98.6 98.5 Pulse 69 72 70 70 Resp 24 20 B/P 132/76 103/65 121/70 113/71 Pulse Ox 92 95 O2 Delivery Nasal Cannula O2 Flow Rate 2.5 2.5 10/16/16 10/16/16 07:50 07:52 Temp 97.6 97.6 Pulse 68 70 Resp 18 B/P 113/71 113/71 Pulse Ox 95 O2 Delivery Room Air O2 Flow Rate 2.5 Intake and Output 10/15/16 10/15/16 10/16/16 15:00 23:00 07:00 Intake Total 220 ml 400 ml Output Total 200 ml 250 ml 400 ml Balance 20 ml 150 ml -400 ml KE SHAW MD Oct 16, 2016 10:31
--- NOTE | 2016-10-16 11:31 | PDOC ---
PULMONARY PROGRESS NOTES Subjective feels better Vitals Vital Signs Date Time Temp Pulse Resp B/P Pulse Ox O2 Delivery O2 Flow Rate FiO2 10/16/16 07:52 70 113/71 10/16/16 07:50 97.6 18 95 Room Air 2.5 97.6 General: Alert, Oriented X4, No acute distress Lungs: Other (decrease bs) Cardiovascular: S1 Abdomen: Soft, Non-tender Extremities: No Edema, Other Labs Laboratory Tests Test 10/14/16 11:48 10/14/16 14:40 10/15/16 09:45 10/15/16 13:40 O2 Saturation 89% (92-99) Arterial Blood pH 7.37 (7.35-7.45) Arterial Blood pCO2 at Patient Temp 38mmHg (35-46) Arterial Blood pO2 at Patient Temp 63mmHg (65-108) Arterial Blood HCO3 22mmol/L (21-28) Arterial Blood Base Excess -3mmol/L (-3-3) FiO2 36 Sodium Level 142mmol/L (136-145) 142mmol/L (136-145) Potassium Level 3.6mmol/L (3.5-5.1) 4.1mmol/L (3.5-5.1) Chloride Level 102mmol/L (98-107) 102mmol/L (98-107) Carbon Dioxide Level 25mmol/L (21-32) 25mmol/L (21-32) Anion Gap 15 (6-14) 15 (6-14) Blood Urea Nitrogen 33mg/dL (7-20) 41mg/dL (7-20) Creatinine 2.4mg/dL (0.6-1.0) 2.9mg/dL (0.6-1.0) Estimated GFR (Cockcroft-Gault) 23.3 18.7 Glucose Level 108mg/dL (70-99) 109mg/dL (70-99) Calcium Level 9.0mg/dL (8.5-10.1) 9.2mg/dL (8.5-10.1) Magnesium Level 2.0mg/dL (1.8-2.4) 2.2mg/dL (1.8-2.4) Uric Acid 6.6mg/dL (2.6-6.0) Creatine Kinase 200U/L (26-192) Troponin I Quantitative 0.319ng/mL (0.000-0.055) Urine Collection Type Unknown Urine Color Yellow Urine Clarity Clear Urine pH 5.0 Urine Specific [place] 1.010 Urine Protein Negativemg/dL (NEG-TRACE) Urine Glucose (UA) Negativemg/dL (NEG) Urine Ketones (Stick) Negativemg/dL (NEG) Urine Blood Negative (NEG) Urine Nitrite Negative (NEG) Urine Bilirubin Negative (NEG) Urine Urobilinogen Dipstick 1.0mg/dL (0.2 mg/dL) Urine Leukocyte Esterase Negative (NEG) Urine RBC 0/HPF (0-2) Urine WBC 0/HPF (0-4) Urine Transitional Epithelial Cells Few/LPF Urine Bacteria Moderate/HPF (0-FEW) Urine Hyaline Casts Many/HPF Urine Random Sodium 81mmol/L (Not Estab.) Test 10/16/16 04:00 Hemoglobin 12.4g/dL (12.0-15.5) Sodium Level 142mmol/L (136-145) Potassium Level 4.0mmol/L (3.5-5.1) Chloride Level 101mmol/L (98-107) Carbon Dioxide Level 28mmol/L (21-32) Anion Gap 13 (6-14) Blood Urea Nitrogen 45mg/dL (7-20) Creatinine 2.9mg/dL (0.6-1.0) Estimated GFR (Cockcroft-Gault) 18.7 Glucose Level 101mg/dL (70-99) Calcium Level 9.2mg/dL (8.5-10.1) Phosphorus Level 5.1mg/dL (2.6-4.7) Magnesium Level 2.3mg/dL (1.8-2.4) Albumin 2.7g/dL (3.4-5.0) Laboratory Tests Test 10/15/16 13:40 10/16/16 04:00 Urine Collection Type Unknown Urine Color Yellow Urine Clarity Clear Urine pH 5.0 Urine Specific [place] 1.010 Urine Protein Negativemg/dL (NEG-TRACE) Urine Glucose (UA) Negativemg/dL (NEG) Urine Ketones (Stick) Negativemg/dL (NEG) Urine Blood Negative (NEG) Urine Nitrite Negative (NEG) Urine Bilirubin Negative (NEG) Urine Urobilinogen Dipstick 1.0mg/dL (0.2 mg/dL) Urine Leukocyte Esterase Negative (NEG) Urine RBC 0/HPF (0-2) Urine WBC 0/HPF (0-4) Urine Transitional Epithelial Cells Few/LPF Urine Bacteria Moderate/HPF (0-FEW) Urine Hyaline Casts Many/HPF Urine Random Sodium 81mmol/L (Not Estab.) Hemoglobin 12.4g/dL (12.0-15.5) Sodium Level 142mmol/L (136-145) Potassium Level 4.0mmol/L (3.5-5.1) Chloride Level 101mmol/L (98-107) Carbon Dioxide Level 28mmol/L (21-32) Anion Gap 13 (6-14) Blood Urea Nitrogen 45mg/dL (7-20) Creatinine 2.9mg/dL (0.6-1.0) Estimated GFR (Cockcroft-Gault) 18.7 Glucose Level 101mg/dL (70-99) Calcium Level 9.2mg/dL (8.5-10.1) Phosphorus Level 5.1mg/dL (2.6-4.7) Magnesium Level 2.3mg/dL (1.8-2.4) Albumin 2.7g/dL (3.4-5.0) Medications Active Scripts Medications Dose Route/Sig Days Date Category Furosemide 40 Mg Tablet 40 Mg PO [id number] 10/14/16 Reported Acetaminophen 500 Mg Tablet 500 Mg PO PRN Q6HRS PRN 10/14/16 Reported Metoprolol Tartrate 25 Mg Tablet 25 Mg PO DAILY 10/14/16 Reported Klor-Con M20 (Potassium Chloride) 20 Meq Tab.er.prt 20 Meq PO DAILYWBK06/04/16 Rx Metoprolol Tartrate 25 Mg Tablet 12.5 Mg PO BID 06/04/16 Rx Metolazone 5 Mg Tablet 5 Mg PO DAILY 06/04/16 Rx Aspirin Ec (Aspirin) 81 Mg Tablet.dr 81 Mg PO DAILYWBK06/04/16 Rx Breo Ellipta 100-25 Mcg Inh (Fluticasone/Vilanterol) 1 Each Aer.pow.ba 1 Puff INH DAILY 11/30/15 Rx Bumetanide 1 Mg Tablet 1 Mg PO BID 11/30/15 Rx Amlodipine Besylate 5 Mg Tablet 5 Mg PO DAILY 11/30/15 Rx Proair Hfa Inhaler (Albuterol Sulfate) 8.5 Gm Hfa.aer.ad 1 Puff INH PRN Q6HRS PRN 03/07/14 Reported Spiriva (Tiotropium [place]) 18 Mcg Cap.w.dev 2 Inh IH DAILY 03/07/14 Reported Lipitor (Atorvastatin Calcium) 20 Mg Tablet 20 Mg PO HS 11/17/13 Reported NITROGLYCERIN SubLingual (Nitroglycerin) 0.4 Mg Tab.subl 0.4 Mg SL PRN 10/22/13 Reported Impression . 1. Acute on chronic respiratory failure, most likely secondary to development of right and left heart failure. 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 Now comes in with increasing edema, orthopnea and dyspnea. 2. Nejfdrvm-fj-[id number] pulmonary hypertension. Previous echo had shown PA pressures in the 80s and now it is in the 60s. This is secondary pulmonary hypertension related to combination of diastolic dysfunction and underlying pulmonary condition including chronic obstructive pulmonary disease and obstructive sleep apnea/obesity hypoventilation syndrome. 3. Underlying obstructive sleep apnea. 4. Underlying chronic obstructive pulmonary disease with chronic respiratory failure. 5. Acute on chronic renal failure. Plan . 1. Continue with present diuresis with close monitoring of her renal function. 2. Continue oxygen to keep sats 92%. 3. Bronchodilators. 4. The patient was encouraged to use a CPAP at night time. There are some mask issues, which can be dealt as an outpatient. 5. Follow Cardiology recommendations. 6. d/w RN/ plans for home hospice MAURICIO CROWE MD Oct 16, 2016 11:31
[2016-10-16] MEDS: BUDESONIDE 0.5 MG/2 ML NEBU NEB SCH (19:26)
[2016-10-16] MEDS: ATORVASTATIN CALCIUM 20 MG TABLET PO SCH (21:45)
[2016-10-17 03:10] VITALS: BP 116/72
[2016-10-17 06:17] LABS: ALBUMIN 2.9 g/dL (3.4-5.0); CALCIUM 9.6 mg/dL (8.5-10.1); PHOSPHORUS 4.7 mg/dL (2.6-4.7); POTASSIUM 4.6 mmol/L (3.5-5.1)
[2016-10-17 07:00] VITALS: BP 130/71
[2016-10-17] MEDS: IPRATRPIUM/ALBUTEROL 0.5/2.5MG 3 ML NEBU. NEB SCH ×2 (07:47→11:04)
[2016-10-17] MEDS: BUDESONIDE 0.5 MG/2 ML NEBU NEB SCH (07:47)
[2016-10-17] MEDS: METOPROLOL TART IMMED RELEASE 25 MG TABLET PO SCH (09:00)
[2016-10-17] MEDS: POTASSIUM CHLORIDE 20 MEQ TABLET.ER. PO SCH (09:22)
[2016-10-17] MEDS: BUMETANIDE 1 MG TABLET PO SCH (09:22)
[2016-10-17] MEDS: METOLAZONE 2.5 MG TABLET PO SCH (09:23)
[2016-10-17] MEDS: PANTOPRAZOLE 40 MG TABLET. PO SCH (09:23)
[2016-10-17] MEDS: ASPIRIN ENTERIC COATED 81 MG TABLET.DR. PO SCH (09:23)
[2016-10-17] MEDS: AMLODIPINE BESYLATE 5 MG TABLET PO SCH (09:26)
[2016-10-17 10:59] VITALS: BP 108/65
--- NOTE | 2016-10-17 11:02 | PDOC ---
PROGRESS NOTES Chief Complaint Chief Complaint 1. Atypical chest pain. 2. Yyoqi-ru-snrogvr congestive heart failure associated moderate to severe pulmonary hypertension with cor pulmonale. 3. Prior history of coronary artery disease. 4. Hypertension. 5. Hyperlipidemia. 6. CHIQUI History of Present Illness History of Present Illness Patient awake and in NAD when seen and examined this AM. Pt states that she does "not like being in the hospital". Per RN patient has been having some sundowning at night. Pt denies any current CP or SOA. VSS- All questions and concerns addressed and answered. Vitals Vitals Vital Signs Date Time Temp Pulse Resp B/P Pulse Ox O2 Delivery O2 Flow Rate FiO2 10/17/16 09:26 63 130/71 10/17/16 08:00 Nasal Cannula 2.5 10/17/16 07:48 93 10/17/16 07:00 97.6 20 97.6 Physical Exam General: Alert, Cooperative, No acute distress, Other Heart: Regular rate, Normal S1, Normal S2, Other Lungs: Other (decrease bs) Abdomen: Normal bowel sounds, Soft Extremities: No cyanosis, Other Skin: No breakdown, No significant lesion Labs LABS Laboratory Tests Test 10/17/16 05:00 Sodium Level 141mmol/L (136-145) Potassium Level 4.6mmol/L (3.5-5.1) Chloride Level 100mmol/L (98-107) Carbon Dioxide Level 30mmol/L (21-32) Anion Gap 11 (6-14) Blood Urea Nitrogen 52mg/dL (7-20) Creatinine 3.0mg/dL (0.6-1.0) Estimated GFR (Cockcroft-Gault) 18.0 Glucose Level 91mg/dL (70-99) Calcium Level 9.6mg/dL (8.5-10.1) Phosphorus Level 4.7mg/dL (2.6-4.7) Magnesium Level 2.3mg/dL (1.8-2.4) Albumin 2.9g/dL (3.4-5.0) Review of Systems Review of Systems Patient complaint of hunger Patient complaint of fatigue Assessment and Plan Assessmemt and Plan Problems Medical Problems: (1) Acute on chronic congestive heart failure Status: Acute (2) Acute on chronic diastolic CHF (congestive heart failure) Status: Acute (3) Chronic renal failure, stage 4 (severe) Status: Acute (4) Elevated troponin Status: Acute (5) Severe protein-calorie malnutrition Status: Acute Assessment: 1. Atypical chest pain. 2. [id number] congestive heart failure associated moderate to severe pulmonary hypertension with cor pulmonale. 3. Prior history of coronary artery disease. 4. Hypertension. 5. Hyperlipidemia. 6. CHIQUI Plan: Continue to monitor the patient per floor protocol Daily labs- CBC, BMP, BUN and Cr Monitor daily BUN and Cr Appreciate all subspecialty input and recommendations Hospice pending DW RN Problems: Comment Review of Relevant I have reviewed the following items yaakov (where applicable) has been applied. Labs Laboratory Tests Test 10/15/16 13:40 10/16/16 04:00 10/17/16 05:00 Urine Collection Type Unknown Urine Color Yellow Urine Clarity Clear Urine pH 5.0 Urine Specific [place] 1.010 Urine Protein Negativemg/dL (NEG-TRACE) Urine Glucose (UA) Negativemg/dL (NEG) Urine Ketones (Stick) Negativemg/dL (NEG) Urine Blood Negative (NEG) Urine Nitrite Negative (NEG) Urine Bilirubin Negative (NEG) Urine Urobilinogen Dipstick 1.0mg/dL (0.2 mg/dL) Urine Leukocyte Esterase Negative (NEG) Urine RBC 0/HPF (0-2) Urine WBC 0/HPF (0-4) Urine Transitional Epithelial Cells Few/LPF Urine Bacteria Moderate/HPF (0-FEW) Urine Hyaline Casts Many/HPF Urine Random Sodium 81mmol/L (Not Estab.) Hemoglobin 12.4g/dL (12.0-15.5) Sodium Level 142mmol/L (136-145) 141mmol/L (136-145) Potassium Level 4.0mmol/L (3.5-5.1) 4.6mmol/L (3.5-5.1) Chloride Level 101mmol/L (98-107) 100mmol/L (98-107) Carbon Dioxide Level 28mmol/L (21-32) 30mmol/L (21-32) Anion Gap 13 (6-14) 11 (6-14) Blood Urea Nitrogen 45mg/dL (7-20) 52mg/dL (7-20) Creatinine 2.9mg/dL (0.6-1.0) 3.0mg/dL (0.6-1.0) Estimated GFR (Cockcroft-Gault) 18.7 18.0 Glucose Level 101mg/dL (70-99) 91mg/dL (70-99) Calcium Level 9.2mg/dL (8.5-10.1) 9.6mg/dL (8.5-10.1) Phosphorus Level 5.1mg/dL (2.6-4.7) 4.7mg/dL (2.6-4.7) Magnesium Level 2.3mg/dL (1.8-2.4) 2.3mg/dL (1.8-2.4) Albumin 2.7g/dL (3.4-5.0) 2.9g/dL (3.4-5.0) Laboratory Tests Test 10/17/16 05:00 Sodium Level 141mmol/L (136-145) Potassium Level 4.6mmol/L (3.5-5.1) Chloride Level 100mmol/L (98-107) Carbon Dioxide Level 30mmol/L (21-32) Anion Gap 11 (6-14) Blood Urea Nitrogen 52mg/dL (7-20) Creatinine 3.0mg/dL (0.6-1.0) Estimated GFR (Cockcroft-Gault) 18.0 Glucose Level 91mg/dL (70-99) Calcium Level 9.6mg/dL (8.5-10.1) Phosphorus Level 4.7mg/dL (2.6-4.7) Magnesium Level 2.3mg/dL (1.8-2.4) Albumin 2.9g/dL (3.4-5.0) Microbiology 10/15/16 Urine Culture - Preliminary, Resulted 10/15/16 Urine Culture Result 1 (WILFRED) - Preliminary, Resulted Medications Current Medications Sodium Chloride (Iv Sodium Chloride 0.9% 1000ml Bag) 1,000 ml @ 100 mls/hr Q10H IV Last administered on 10/13/16 19:51; Start 10/13/16 at 18:12; Stop at 04:11; Status DC Ondansetron HCl (Zofran) 4 mg 1X ONCE IV Last administered on 10/13/16 19:51 ; Start 10/13/16 at 18:15; Stop 10/13/16 at 18:16; Status DC Famotidine (Pepcid) 20 mg 1X ONCE IVP Last administered on 10/13/16 19:51; Start 10/13/16 at 18:15; Stop 10/13/16 at 18:16; Status DC Furosemide (Lasix) 40 mg 1X ONCE IVP Last administered on 10/14/16 11:25; Start 10/14/16 at 11:00; Stop 10/14/16 at 11:01; Status DC Amlodipine Besylate (Norvasc) 5 mg DAILY PO Last administered on 10/17/16 09: 26; Start 10/14/16 at 11:00 Aspirin (Ecotrin) 81 mg DAILYWBKFT PO Last administered on 10/17/16 09:23; Start 10/14/16 at 11:00 Atorvastatin Calcium (Lipitor) 20 mg HS PO Last administered on 10/16/16 21:45 ; Start 10/14/16 at 21:00 Bumetanide (Bumex) 1 mg BID PO Last administered on 10/17/16 09:22; Start at 11:00 Metoprolol Tartrate (Lopressor) 12.5 mg BID PO Last administered on 10/16/16 07:52; Start 10/14/16 at 11:00 Metoprolol Tartrate (Lopressor) 25 mg DAILY PO ; Start 10/15/16 at 09:00; Stop 10/15/16 at 09:00; Status DC Potassium Chloride (Klor-Con) 20 meq DAILYWBKFT PO Last administered on 09:22; Start 10/14/16 at 11:00 Non-Formulary Medication 1 puff PRN Q6HRS PRN INH SHORTNESS OF BREATH; Start at 10:45; Stop 10/14/16 at 11:05; Status DC Non-Formulary Medication 1 puff DAILY INH ; Start 10/15/16 at 09:00; Stop at 09:00; Status DC Metolazone (Zaroxolyn) 5 mg DAILY PO Last administered on 10/17/16 09:23; Start 10/14/16 at 11:00 Non-Formulary Medication 2 inh DAILY IH ; Start 10/15/16 at 09:00; Stop at 09:00; Status DC Albuterol/ Ipratropium (Duoneb) 3 ml RTQID NEB Last administered on 10/17/16 07:47; Start 10/14/16 at 12:00 Budesonide (Pulmicort) 0.5 mg RTBID NEB Last administered on 10/17/16 07:47; Start 10/14/16 at 11:00 Albuterol Sulfate (Ventolin Neb Soln) 2.5 mg PRN Q6HRS PRN NEB SHORTNESS OF BREATH; Start 10/14/16 at 11:00 Pantoprazole Sodium 40 mg 40 mg DAILYAC PO Last administered on 10/17/16 09:23 ; Start 10/14/16 at 13:00 Magnesium Sulfate/ Dextrose (Magnesium Sulfate PREMIX 2GM) 50 ml @ 25 mls/hr PRN DAILY PRN IV for Mag < 1.7 on am labs; Start 10/15/16 at 08:00 Active Scripts Active Klor-Con M20 (Potassium Chloride) 20 Meq Tab.er.prt 20 Meq PO DAILYWBKFT Metoprolol Tartrate 25 Mg Tablet 12.5 Mg PO BID Metolazone 5 Mg Tablet 5 Mg PO DAILY Aspirin Ec (Aspirin) 81 Mg Tablet.dr 81 Mg PO DAILYWBKFT Breo Ellipta 100-25 Mcg Inh (Fluticasone/Vilanterol) 1 Each Aer.pow.ba 1 Puff INH DAILY Bumetanide 1 Mg Tablet 1 Mg PO BID Amlodipine Besylate 5 Mg Tablet 5 Mg PO DAILY Reported Furosemide 40 Mg Tablet 40 Mg PO [id number] Acetaminophen 500 Mg Tablet 500 Mg PO PRN Q6HRS PRN Metoprolol Tartrate 25 Mg Tablet 25 Mg PO DAILY Proair Hfa Inhaler (Albuterol Sulfate) 8.5 Gm Hfa.aer.ad 1 Puff INH PRN Q6HRS PRN Spiriva (Tiotropium Stanton) 18 Mcg Cap.w.dev 2 Inh IH DAILY Lipitor (Atorvastatin Calcium) 20 Mg Tablet 20 Mg PO HS NITROGLYCERIN SubLingual (Nitroglycerin) 0.4 Mg Tab.subl 0.4 Mg SL PRN Vitals/I & O Vital Sign - Last 24 Hours 10/16/16 10/16/16 10/16/16 10/16/16 11:30 15:30 15:33 19:30 Temp 97.9 97.4 97.9 97.4 Pulse 56 56 Resp 22 20 B/P 101/64 117/70 Pulse Ox 93 93 96 O2 Delivery Nasal Cannula Nasal Cannula Nasal Cannula O2 Flow Rate 2.5 2.5 2.5 10/16/16 10/16/16 10/16/16 10/16/16 19:44 20:00 21:00 22:47 Temp 97.6 97.4 97.6 97.4 Pulse 59 49 52 Resp 16 B/P 114/69 114/69 114/71 Pulse Ox 93 90 O2 Delivery Nasal Cannula Nasal Cannula Nasal Cannula O2 Flow Rate 2.0 2.0 2.0 10/17/16 10/17/16 10/17/16 10/17/16 03:10 07:00 07:48 08:00 Temp 98.2 97.6 98.2 97.6 Pulse 60 63 Resp 16 20 B/P 116/72 130/71 Pulse Ox 93 93 93 O2 Delivery Nasal Cannula Nasal Cannula Nasal Cannula Nasal Cannula O2 Flow Rate 3.0 3.0 2.5 10/17/16 09:26 Pulse 63 B/P 130/71 Intake and Output 10/16/16 10/16/16 10/17/16 15:00 23:00 07:00 Intake Total 100 ml 250 ml Output Total 200 ml 350 ml Balance -100 ml -100 ml MARIE TAYLOR K III DO Oct 17, 2016 11:02
== END 2016-10-17 15:15 | disposition hospice, home (50) | DRG 682 ==
LOC: ER 16:21 → 2 SOUTH 20:41
PROVIDERS: ADMIT Internal Medicine; ATTEND Internal Medicine
DX: N17.9 Acute kidney failure, unspecified (principal); I50.33 Acute on chronic diastolic (congestive) heart failure; J96.20 Acute and chronic respiratory failure, unspecified whether with hypoxia or hypercapnia; I13.0 Hypertensive heart and chronic kidney disease with heart failure and stage 1 through stage 4 chronic kidney disease, or unspecified chronic kidney disease; E66.2 Morbid (severe) obesity with alveolar hypoventilation; J98.11 Atelectasis; N18.4 Chronic kidney disease, stage 4 (severe); E78.5 Hyperlipidemia, unspecified; E87.6 Hypokalemia; I07.1 Rheumatic tricuspid insufficiency; I25.10 Atherosclerotic heart disease of native coronary artery without angina pectoris; I25.2 Old myocardial infarction; I34.0 Nonrheumatic mitral (valve) insufficiency; I49.5 Sick sinus syndrome; J44.9 Chronic obstructive pulmonary disease, unspecified; K21.9 Gastro-esophageal reflux disease without esophagitis; M19.012 Primary osteoarthritis, left shoulder; Z82.49 Family history of ischemic heart disease and other diseases of the circulatory system; Z87.11 Personal history of peptic ulcer disease; Z87.891 Personal history of nicotine dependence; Z95.5 Presence of coronary angioplasty implant and graft; Z90.49 Acquired absence of other specified parts of digestive tract; Z90.710 Acquired absence of both cervix and uterus; Z98.890 Other specified postprocedural states; Z68.33 Body mass index [BMI] 33.0-33.9, adult
CPT/HCPCS: 36415; 36600; 74022; 76770; 80048; 80053; 80069; 81001; 82550; 82553; 82805; 83690; 83735; 83880; 84300; 84484; 84550; 85018; 85027; 87086; 87324; 93005; 93306; 94250; 94640; 94760; 96361; 96374; 96375; J2405; J7030; J7620; S0028; 99285-25